=== PATIENT | female | born 1990 | race Caucasian/White ===

== ENCOUNTER 2018-01-19 02:16 | Inpatient (IN) ==
[2018-01-18 23:14] VITALS: BMI 35.6
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
--- OUTSIDE RECORDS SUMMARY | 2018-01-18 23:48 | External Medical Summary | Continuity of Care Document ---
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 Provider: Fabiano BACK, , third 8 [address] [id number] weeks Mary Beth Millard, 1522, gestation of Center [address] [place] [address], Tahir Santamaria [place], 120, [place] [id number], Zach [facility] 120, [place] Zach ABDUL, tel: [phone] [place], [phone] , [place]. [id number]. tel: tel:[phone] Roxie Serrano Lower abdominal October- Lee Referring In Womens pain, 1-201 Chela. Provider: Fabiano BACK, unspecifiedEncoun [address] for suprvsn Mary Beth Millard, 1522, of normal Center [address] [place] [address], , third Tahir Santamaria, weeks 120, [place] [id number], gestation of Zach [facility] 120, [place] Zach ABDUL, tel:[phone] [place], , [place]. [id number]. tel: tel:[phone] Associates Zach Encounter for May-2 Lola Referring In Womens suprvsn of normal 4-201 María. Provider: Fabiano BACK, , third 8 [address] [email or web address] weeks Mary Beth Millard, 1522, gestation of Center [address] [place] [address], Dr [facility], 120, [place] [id number], Zach, [facility] 120, [place] Zach ABDUL, tel:[phone] [place], , [place]. [id number]. tel: tel:[phone] Associates [facility] Placenta previa May-2 Lee Referring In Womens Ultrasound specified as w/o 4-201 Chela. Provider: Fabiano BACK, hemorrhage, third 8 [address] [email or web address] weeks Mray Beth Millard, 1522, gestation of [address], [address] [facility], 120, [place] [id number], [facility], [place] Zach ABDUL, tel:+ [phone] [place], , [place]. [id number]. tel: tel:[phone] Associates [facility] Placenta previa Apr-2 Lee Referring In Womens specified as w/o 4-201 Chela. Provider: lidia Last, second 8 [address] trimesterEncounte Mary Beth Millard, 1522, r for suprvsn of [address], normal , Dr [facility] Mary Beth ABDUL, second 120, [place] [id number], [email or web address] weeks Zach, [facility] 120, [place] gestation of CHANTELL Zach, tel:[phone] [place], , [place]. [id number]. tel: tel:[phone] Associates [facility] Placenta previa Apr-0 Lee Referring In Womens specified as w/o 2-201 Chela. Provider: lidia Last, second 8 [address] [email or web address] weeks Mary Beth Millard, 1522, gestation of [address], Dr [facility], 120, Center [id number], Zach, [facility] 120, [place] Zach ABDUL, tel:[phone] [place], , [place]. [id number]. tel: tel:[phone] Roxie Serrano Placenta previa Feb-2 Lee Referring In Womens specified as w/o 8-201 Chela. Provider: orsa Lastor, second 8 700 [address] [email or web address] weeks Medical Shan Millard, 1522, gestation of Center [address] [place] [address], Dr [facility], 120, [place] [id number], [facility], [place] Zach ABDUL, tel:[phone] [place], , [place]. [id number]. tel: tel:[phone] Roxie Serrano Encounter For Feb-2 Lee Referring In Womens Ultrasound 8-201 Chela. Provider: Fabiano BACK, Screening For 8 [address] [id number] Medical Torrez [place], 1522, weeks gestation Center [address] [place] [address], [address] Dr [facility], 120, [place] [id number], [facility], [place] Zach ABDUL, tel:[phone] [place], , [place]. [id number]. tel: tel:[phone] Roxie Serrano Oth Feb-0 Lee Referring In Womens related 6-201 Chela. Provider: Fabiano BACK, conditions, 8 700 [address]ilda PO Box second Medical Shan Millard, 1522, [email or web address] weeks Center [address] [place] [address], gestation of Dr [facility] Mary Beth ABDUL, 120, Center [id number], [facility], [place] Zach ABDUL, tel:[phone] [place], , [place]. [id number]. tel: tel:[phone] Roxie Serrano Encounter for Otis-2 Lee Referring In Womens suprvsn of normal 3-201 Chela. Provider: Fabiano BACK, , first 8 [address] [email or web address] weeks Medical Shan Millard, 1522, gestation of Center [address] [place] [address], Dr [facility], 120, Center [id number], Zach [facility] 120, [place] Zach ABDUL, tel:[phone] [place], , [place]. [id number]. tel: tel:[phone] Associates Zach Encounter for Dec-0 Lee Referring In Womens suprvsn of normal 5-201 Chela. Provider: Health PA, , first 7 700 [address]ilda PO Box trimesterLess Medical Torrez J, 1522, than 8 weeks Center [facility] Tiera, gestation of , [facility], 120, Center [id number], Zach, [facility] 120, [place] AZZach, tel:[phone] [place], , [place]. [id number]. tel: tel:[phone] Associates Zach Oth Nov-2 Torrez In Womens related 7-201 Nilda. Health PA, conditions, 7 700 PO Box unspecified Medical 1522, trimester Center Dr Tiera, [facility], 120, [id number], Serrano, CHANTELL, tel:[phone] , [place]. tel: [phone] Roxie Serrano Oth Nov-2 Torrez Referring In Womens related 7-201 Nilda. Provider: Health PA, conditions, 7 700 [address] PO Box unspecified Medical Torrez J, 1522, trimester Center [facility] Dr Tiera [facility], 120, Center [id number], Zach [facility] 120, [place] Zach ABDUL, tel:[phone] [place], , [place]. [id number]. tel: tel:[phone] Roxie Serrano Otis-2 Torrez Referring In Womens Follow-Up, 5-201 Nilda. Provider: Health PA, Routine 7 700 [address]ilda PO Box Medical Torrez J, 1522, Center [address], [facility], 120, Center [id number], Zach, [facility] 120, [place] Zach ABDUL, tel:[phone] [place], , [place]. [id number]. tel: tel:[phone] Roxie Serrano Oct-0 Lee Referring In Womens 4-201 Chela. Provider: Fabiano BACK, 6 700 Nilda Millard, 1522, Center [address] [place], [facility], 120, Center [id number], Zach [facility] 120, [place] Zach ABDUL, tel:[phone] [place], , [place]. [id number]. tel: tel:[phone] Roxie Serrano Sep-2 Lee Referring In Womens 0-201 Chela. Provider: Fabiano BACK, 6 700 Nilda Clinton Torrez [place], 1522, Center [address], [facility], 120, Center [id number], [facility], Zach ABDUL, tel:[phone] [place], , [place]. [id number]. tel: tel:[phone] Roxie Serrano Encounter for Apr-2 Lee Referring In Womens screening for oth 8-201 Chela. Provider: Fabiano BACK, infec/parastc 6 700 Nilda Lou [facility] Mary Beth [facility], 1522, Center [address], [facility], 120, Center [id number], Zach [facility] 120, [place] Zach ABDUL, tel:[phone] [place], , [place]. [id number]. tel: tel:[phone] Roxie Serrano False positive Apr-1 Lee Referring In Womens serology for HIV 2-201 Chela. Provider: Fabiano BACK, 6 700 [address]ilda [place] Torrez [place], 1522, Center [address] [place], [facility], 120, Center [id number], Zach [facility] 120, [place] Zach ABDUL, tel:[phone] [place], , [place]. [id number]. tel: tel:[phone] Roxie Serrano Apr-0 Lee Referring In Womens 1-201 Chela. Provider: Fabiano BACK, 6 700 Nilda Carmine Clinton Torrez [place], 1522, Center [address], [facility] Medical [place], 120, Center [id number], Serrano, [facility] 120, [place] Zach ABDUL, tel:[phone] [place], , [place]. [id number]. tel: tel:[phone] Associates [facility] Pelvic and Mar-0 Torrez Referring In Womens perineal pain 9-201 Nilda. Provider: Fabiano BACK, 6 700 [address]ilda PO Box Medical Shan Millard, 1522, Center [facility] Dr Tiera, [facility] [place], 120, Center [id number], Serrano, Tahir 120, [place], tel:[phone] [place], , [place]. [id number]. tel: tel:[phone] Associates [facility] Pelvic and Mar-0 Torrez Referring In Womens perineal pain 7-201 Nilda. Provider: Fabiano BACK, 6 700 [address]ilda PO Box Medical Shan Millard, 1522, Center [facility] Dr [place]iera, [facility] [place], 120, Center [id number], Zach, [facility] 120, [place] Zach ABDUL, tel:[phone] [place], , [place]. [id number]. tel: tel:[phone] Associates [facility] Irregular Oct- Torrez Referring In Womens MensesFemale 4-201 Nilda. Provider: Health WONG, infertility 5 700 [address]ilda PO Box associated with Medical Shan Milalrd, 1522, anovulationEncoun Center [facility] [place] for , [facility] CHANTELL, test, result 120, Center [id number], negative Serrano, [facility] 120, [place] Zach ABDUL, tel:[phone] [place], , [place]. [id number]. tel: tel:[phone] Associates Zach Sep-1 Torrez Referring In Womens 6-201 Nilda. Provider: Health WONG, 4 700 [address]ilda PO Box Medical Shan Millard, 1522, Center [facility] Dr [place]iera, [facility] [place], 120, [place] [id number], Zach, [facility] 120, [place] Zach ABDUL, tel:[phone] [place] [phone] , . [id number]. tel: tel: [phone] Family History Family Member Diagnosis Age At [...] Record Payers Payer name Insurance type Covered green party ID Authorization(s) [employer] [place] [id number] [employer] [facility] [id number] [employer] [place] [employer] [place] [id number] [employer] [place] [employer] [place] [id number] [employer] [facility] [id number] [employer] [facility] [id number] Social History Type Description Quantity Date Captured Alcohol Use Details No Caffeine Use Details Unknown Tobacco Use Status Unknown Smoking Status Never smoker Vital Signs Date / Height Weight BMI Pulse Blood Temperature Respiratory Body Head BMI Time: Rate Pressure Rate Surface Circumference percentile Area 206.20 38.9 / lbs 6 mm[Hg] 3:47 kg/m PM eter (2) Chief Complaint And Reason For Visit Unknown Chief Complaint And Reason For Visit Reason For Referral Reason For Referral Unknown Plan Of Care Date Type Action Status Goal Lifestyle education regarding completed diet Goal Lifestyle education regarding completed diet Appointment Liberty Roman BOOKED Future Order: Radiology Order Ultrasound OB Follow-up ([id number]) Ordered Future Order: Radiology Order Complete OB Ultrasound > 14 Weeks Ordered ([id number]) Date Type Problem Goal Intervention Status Start Date Unknown. History Of Present Illness Encounter Date Complaint History Of Present Illness This patient has no known history of present illness Functional Status Encounter Date Functional Assessment Cognitive Assessment Unknown Medications Administered Medication Instructions Dosage Effective Dates (start - stop) Status Comments Drug Treatment Unknown Instructions Date Instruction Additional Information gestational glucose lab screening seat belt use [...]
--- OUTSIDE RECORDS SUMMARY | 2018-01-18 23:48 | External Medical Summary | Continuity of Care Document ---
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 Provider: Fabiano BACK, , third 8 [address] [email or web address] weeks Mary Beth Millard, 1522, gestation of [address], Tahir Santamaria [place], 120, [place] [id number], [facility], Zach ABDUL, tel:[phone] [place], [phone] , . [id number]. tel: tel:[phone] Roxie Serrano Encounter For Lee Referring In Womens 6-201 Chela. Provider: Fabiano BACK, Screening For 8 700 Nilda [address] Streptococcus B35 Mary Beth Millard, 1522, weeks gestation Center [address] [place] [address], of Tahir Santamaria [place], 120, [place] [id number], [place] [address], Zach ABDUL, tel:+ [phone] [place], , [place]. [id number]. tel: tel:[phone] Roxie Serrano Encounter for Rivera-1 Lee Referring In Womens suprvsn of normal 3-201 Chela. Provider: Health WONG, , third 8 700 [address]ilda [address] [email or web address] weeks Medical Shan Millard, 1522, gestation of Center [address] [place] [address], , [facility], 120, Center [id number], Zach, [facility] 120, [place] Zach ABDUL, tel:[phone] [place], , [place]. [id number]. tel: tel:[phone] Roxie Serrano Lower abdominal May-3 Lee Referring In Womens pain, 1-201 Chela. Provider: Health WONG, unspecifiedEncoun [address] for suprvsn Medical Torrez [place], 1522, of normal Center [address] [place] [address], , third Tahir Santamaria, [id number] weeks 120, Louann [id number], [facility], [place] CHANTELL Zach, tel:+ [phone] [place], , [place]. [id number]. tel: tel:[phone] Roxie Serrano Encounter for May-2 Lola Referring In Womens suprvsn of normal 4-201 María. Provider: Fabiano BACK, , third 8 700 Nilda [address] [email or web address] weeks Medical Shan Millard, 1522, gestation of Center [address] [place] [address], , [facility] [place], 120, [place] [id number], Zach, [facility] 120, [place] Zach ABDUL, tel:[phone] [place], , [place]. [id number]. tel: tel:[phone] Roxie Serrano Placenta previa May-2 Lee Referring In Womens Ultrasound specified as w/o 4-201 Chela. Provider: Fabiano BACK, hemorrhage, third 8 700 Nilda [address] [email or web address] weeks Medical Shan Millard, 1522, gestation of [address], , [facility] [place], 120, Center [id number], Zach, [facility] 120, [place] Zach ABDUL, tel:[phone] [place], , [place]. [id number]. tel: tel:[phone] Roxie Serrano Placenta previa Apr-2 Lee Referring In Womens specified as w/o 4-201 Chela. Provider: lidia Last, second 8 700 Nilda PO Box trimesterEncounte Medical [place], 1522, r for suprvsn of [address], normal , Dr [facility] CHANTELL, second 120, Louann [id number], [id number] weeks Serrano, [facility] 120, [place] gestation of Zach ABDUL, tel:+ [phone] [place], , [place]. [id number]. tel: tel:[phone] Roxie Serrano Placenta previa Apr-0 Lee Referring In Womens specified as w/o 2-201 Chela. Provider: lidia Last, second 8 700 Nilda PO Box [email or web address] weeks Medical [place], 1522, gestation of [address], Dr [facility], 120, Louann [id number], [facility], [place] Zach ABDUL, tel:[phone] [place], , [place]. [id number]. tel: tel:[phone] Roxie Serrano Placenta previa Feb-2 Lee Referring In Womens specified as w/o 8-201 Chela. Provider: lidia Last, second 8 700 Nilda PO Box [id number] weeks Medical [place], 1522, gestation of [address], Dr [facility], 120, Louann [id number], Zach, [facility] 120, [place] Zach ABDUL, tel:[phone] [place], , [place]. [id number]. tel: tel:[phone] Roxie Serrano Encounter For Feb-2 Lee Referring In Womens Ultrasound 8-201 Chela. Provider: Fabiano BACK, Screening For 8 700 Nilda PO Box [id number] Medical [place], 1522, weeks gestation Center [address] [place] [address], [address] [facility], 120, Louann [id number], Zach, [facility] 120, [place] Zach ABDUL, tel:[phone] [place], , [place]. [id number]. tel: tel:[phone] Roxie Serrano Oth Feb-0 Lee Referring In Womens related 6-201 Chela. Provider: Health PA, conditions, 8 700 Nilda PO Box second Medical Torrez J, 1522, weeks Center [address] [place] [address], gestation of Dr [facility] Mary Beth ABDUL, 120, Center [id number], Zach, [facility] 120, [place] Zach ABDUL, tel:[phone] [place], , [place]. [id number]. tel: tel:[phone] Roxie Serrano Encounter for Otis-2 Lee Referring In Womens suprvsn of normal 3-201 Chela. Provider: Health PA, , first 8 700 Nilda [address] Box [email or web address] weeks Medical [place], 1522, gestation of [address], Dr [facility], 120, Louann [id number], Zach [facility] 120, [place] Zach ABDUL, tel:[phone] [place], , [place]. [id number]. tel: tel:[phone] Roxie Serrano Encounter for Dec-0 Lee Referring In Womens suprvsn of normal 5-201 Chela. Provider: Health PA, , first 7 700 Nilda PO Box trimesterLess Medical Torrez J, 1522, than 8 weeks [address] [place] [address], gestation of Dr [facility] Mary Beth ABDUL, 120, Center [id number], Zach, [facility] 120, [place] Zach ABDUL, tel:[phone] [place], , [place]. [id number]. tel: tel:[phone] Roxie Serrano Oth Nov-2 Torrez In Womens related 7-201 Nilda. Health PA, conditions, 7 700 PO Box unspecified Medical 1522, trimester Center Dr Tiera [facility] [place], 120, [id number], [place], [place], tel:[phone] , [place]. tel: [phone] Roxie Serrano Oth Nov-2 Torrez Referring In Womens related 7-201 Nilda. Provider: Fabiano BACK, conditions, 7 700 Nilda Lou unspecified Mary Beth Millard, 1522, trimester Center [address], [facility] [place], 120, [place] [id number], [place], [facility] 120, [place] Zach ABDUL, tel:[phone] [place], , [place]. [id number]. tel: tel:[phone] Roxie Serrano Otis-2 Torrez Referring In Womens Follow-Up, 5-201 Nilda. Provider: Fabiano BACK, Routine 7 700 Nilda Tor[place], 1522, Center [address], [facility], 120, Louann [id number], [facility] 120, Zach ABDUL, tel:[phone] [place], , [place]. [id number]. tel: tel:[phone] Roxie Serrano Oct-0 Lee Referring In Womens 4-201 Chela. Provider: Fabiano BACK, 6 700 Nilda Torrez [place], 1522, Center [address], [facility], 120, Center [id number], Zach, [facility] 120, Zach ABDUL, tel:[phone] [place], , [place]. [id number]. tel: tel:[phone] Roxie Serrano Sep-2 Lee Referring In Womens 0-201 Chela. Provider: Fabiano BACK, 6 700 Nilda Tor[place], 1522, Center [address], [facility], 120, Center [id number], Zach, [facility] 120, [place] Zach ABDUL, tel:[phone] [place], , [place]. [id number]. tel: tel:[phone] Roxie Serrano Encounter for Apr-2 Lee Referring In Womens screening for oth 8-201 Chela. Provider: Fabiano BACK, infec/parastc 6 700 Nilda Torrez J, 1522, Center [address] Tiera, [facility] [place], 120, Center [id number], Zach, [facility] 120, [place] Zach ABDUL, tel:[phone] [place], , [place]. [id number]. tel: tel:[phone] Associates Zach False positive Apr-1 Lee Referring In Womens serology for HIV 2-201 Chela. Provider: Fabiano BACK, 6 700 Nilda Torrez J, 1522, Center [address] T[address], [facility] [place], 120, Center [id number], Zach, [facility] 120, [place] Zach ABDUL, tel:[phone] [place], , [place]. [id number]. tel: tel:[phone] Associates Zach Apr-0 Lee Referring In Womens 1-201 Chela. Provider: Fabiano BACK, 6 700 Nilda Torrez J, 1522, Center [address] Tiera, [facility] [place], 120, Center [id number], Zach [facility] 120, [place] Zach ABDUL, tel:[phone] [place], , [place]. [id number]. tel: tel:[phone] Associates Zach Pelvic and Mar-0 Torrez Referring In Womens perineal pain 9-201 Nilda. Provider: Fabiano BACK, 6 700 Nilda Torrez J, 1522, Center [address] Tiera, [facility] [place], 120, Center [id number], Zach [facility] 120, [place] Zach ABDUL, tel:[phone] [place], , [place]. [id number]. tel: tel:[phone] Associates Zach Pelvic and Mar-0 Torrez Referring In Womens perineal pain 7-201 Nilda. Provider: Fabiano BACK, 6 700 Nilda Torrez J, 1522, Center [address], [facility] [place], 120, Center [id number], Zach, [facility] 120, [place] Zach ABDUL, tel:[phone] [place], , . [id number]. tel: tel:[phone] Associates Zach Barrios Shan Referring In Womens MensesFemale 4-201 Nilda. Provider: [facility], infertility 5 700 Nilda PO Box associated with Medical Shan Millard, 1522, anovulationEncoun Center [address] for , [facility] CHANTELL, test, result 120, Center [id number], negative Serrano, [facility] 120, Zach ABDUL, tel:[phone] [place], , . [id number]. tel: tel:[phone] Roxie Serrano Shan Referring In Womens 6-201 Nilda. Provider: [facility], 4 700 Nilda PO Box Medical Shan Millard, 1522, Center [facility] Dr Tiera, [facility], 120, Louann [id number], Zach, [facility] 120, [place] Zach ABDUL, tel:[phone] [place], , . [id number]. tel: tel:[phone] Family History Family Member Diagnosis Age At [...] Record Payers Payer name Insurance type Covered alliance party ID Authorization(s) [facility] Out Of State [id number] [facility] [id number] [employer] Out Of State [id number] [employer] Out Of [place] [id number] BC[employer] [facility] [id number] [employer] [id number] Social History Type Description Quantity Date Captured Alcohol Use Details No Caffeine Use Details Unknown Tobacco Use Status Unknown Smoking Status Never smoker Vital Signs Date / Height Weight BMI Pulse Blood Temperature Respiratory Body Head BMI Time: Rate Pressure Rate Surface Circumference percentile Area 209.70 39.6 110/69 2018 lbs 2 mm[Hg] 4:15 kg/m PM eter (2) Chief Complaint And Reason For Visit Unknown Chief Complaint And Reason For Visit Reason For Referral Reason For Referral Unknown Plan Of Care Date Type Action Status Goal Lifestyle education regarding completed diet Goal Lifestyle education regarding completed diet Appointment Liberty Roman BOOKED Future Order: Radiology Order Ultrasound OB Follow-up ([id number]) Ordered Future Order: Radiology Order Complete OB Ultrasound > 14 Weeks Ordered ([id number]) Date Type Problem Goal Intervention Status Start [...]
--- OUTSIDE RECORDS SUMMARY | 2018-01-18 23:48 | External Medical Summary | Continuity of Care Document ---
:1990 Author Organization [facility] Address [address] [place], [place] [address] Phone Support Name Relationship Address Phone Kale Roman spouse [address] [phone] [place] [address] Allergies, Adverse Reactions, Alerts Substance Reaction Severity [...] - stop) Clinical Status Follow-Up, Routine - Oth related conditions, unspecified trimester Irregular Menses Female infertility associated with anovulation Encounter for test, result - negative Oth related conditions, unspecified trimester Pelvic and perineal pain Pelvic and perineal pain - Encounter for screening for oth - infec/parastc diseases Encounter for suprvsn of normal - , first trimester Less than 8 weeks gestation of - 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 Provider: Health PA, , first 7 700 Nilda PO Box trimesterLess irineo Millard, 1522, 8 weeks gestation Center [address] [place], of , [facility] [place], 120, Center [id number], Zach, [facility] 120, [place] Zach ABDUL, tel:[phone] [place], , [place]. [id number]. tel: tel:[phone] Roxie Serrano Oth Apr-2 Torrez In Womens related conditions, Nilda. Health PA, unspecified 7 700 PO Box trimester Medical 1522, Center Dr Tiera, [facility] [place], 120, [id number], [place], [place], tel:[phone] , [place]. tel: [phone] Office/outpa Associates Zach Early ob Oth Torrez Referring tient In Womens (chief related conditions, Nilda. Provider: visit,est, Health PA, complaint) unspecified 7 700 Nilda low PO Box trimester Medical Shan J, 1522, Center [address], [facility], 120, [place] [id number], [facility], [place] Zach ABDUL, tel:[phone] [place], , [place]. [id number]. tel: tel:[phone] Roxie Serrano Otis-2 Shan Referring In Womens Follow-Up, Routine - Nilda. Provider: Fabiano BACK, 7 700 Nilda PO Box Medical Torrez J, 1522, Center [address], [facility], 120, [place] [id number], [facility], [place] Zach ABDUL, tel:[phone] [place], , [place]. [id number]. tel: tel:[phone] Roxie Serrano Oct-0 Lee Referring In Womens 4-201 Chela. Provider: Health WONG, 6 700 Nilda PO Box Medical Tor[place] J, 1522, Center [address], [facility] [place], 120, Center [id number], Zach, [facility] 120, [place] Zach ABDUL, tel:[phone] [place], , [place]. [id number]. tel: tel:[phone] Roxie Serrano Sep-2 Lee Referring In Womens 0-201 Chela. Provider: Fabiano BACK, 6 700 Nilda Torrez [place], 1522, Center [address], [facility] [place], 120, Center [id number], Zach, [facility] 120, [place] Zach ABDUL, tel:[phone] [place], , [place]. [id number]. tel: tel:[phone] Roxie Serrano Encounter for Apr-2 Lee Referring In Womens screening for oth 8-201 Chela. Provider: Fabiano BACK, infec/parastc 6 700 Nilda Lou [facility] Mary Beth Torrez [place], 1522, Center [address]iera, [facility], 120, Center [id number], Zach, [facility] 120, [place] Zach ABDUL, tel:[phone] [place], , [place]. [id number]. tel: tel:[phone] Roxie Serrano False positive Apr-1 Lee Referring In Womens serology for HIV 2-201 Chela. Provider: Fabiano BACK, 6 700 Nilda Torrez [place], 1522, Center [address], [facility], 120, Center [id number], Zach, [facility] 120, [place] Zach ABDUL, tel:[phone] [place], , [place]. [id number]. tel: tel:[phone] Roxie Serrano Apr-0 Lee Referring In Womens 1-201 Chela. Provider: Fabiano BACK, 6 700 Nilda [place] Torrez [place], 1522, Center [address], [facility] [place], 120, [place] [id number], [facility], [place] Zach ABDUL, tel:[phone] [place], , [place]. [id number]. tel: tel:[phone] Roxie Serrano Pelvic and perineal Mar-0 Shan Referring In Womens pain 9-201 Nilda. Provider: Fabiano BACK, 6 700 Nilda Torrez J, 1522, Center [address], [facility] Medical [place], 120, Center [id number], Zach, Tahir 120, [place] Zach ABDUL, tel:[phone] [place], , [place]. [id number]. tel: tel:[phone] Associates Zach Pelvic and perineal Mar-0 Torrez Referring In Womens pain 7-201 Nilda. Provider: Fabiano BACK, 6 700 Nilda PO Box Medical [place] J, 1522, Center [address], [facility] [place], 120, Center [id number], Zach, [facility] 120, [place] Zach ABDUL, tel:[phone] [place], , [place]. [id number]. tel: tel:[phone] Associates Zach Irregular Oct- Shan Referring In Womens MensesFemale 4-201 Nilda. Provider: Fabiano BACK, infertility 5 700 Nilda PO Box associated with Medical Shan J, 1522, anovulationEncounte Center [address] [place] [address], elina for , [facility] CHANTELL, test, result 120, Center [id number], negative Serrano, [facility] 120, [place] Zach ABDUL, tel:[phone] [place], , [place]. [id number]. tel: tel:[phone] Associates Zach Sep-1 Torrez Referring In Womens 6-201 Nilda. Provider: Fabiano BACK, 4 700 Nilda PO Box Medical Tor[place] J, 1522, Center [facility] Dr Tiera, [facility] [place], 120, Center [id number], Zach, [facility] 120, [place] Zach ABDUL, tel:[phone] [place], , [place]. [id number]. tel: tel:[phone] Family History Family Member Diagnosis Age At [...] of Osteoporosis Immunizations Vaccine Date Status Comments Influenza, injectable, completed Source: New Immunization Record quadrivalent, preservative free, 3 yrs or older Tdap completed Source: New Immunization Record Payers Payer name Insurance type Covered green party ID Authorization(s) [facility] [id number] [facility] [id number] [facility] [id number] Social History Type Description Quantity Date Captured Alcohol Use Details No Caffeine Use Details No Tobacco Use Status Never smoked tobacco Smoking Status Never smoker Vital Signs Date / Height Weight BMI Pulse Blood Temperature Respiratory Body Head BMI Time: Rate Pressure Rate Surface Circumference percentile Area 202.10 75 118/69 lbs /min mm[Hg] 2:08 PM Chief Complaint And Reason For Visit Unknown Chief Complaint And Reason For Visit Reason For Referral Reason For Referral Unknown Plan Of Care Date Type Action Status Goal Lifestyle education regarding diet completed Goal Lifestyle education regarding diet completed Date Type Problem Goal Intervention Status Start Date Unknown. History Of Present Illness Encounter Date Complaint History Of Present Illness Early ob 26 yr hf gr 1 p 1 presents today as an early ob to establish PG and mild cramping.HPI: LMP 04/17/17, 5.3GA, EDC 01/22/18. Reports some mild cramping last evening and today. No bleeding. Positive nausea. Here to discuss early PG. Planning to travel [place] to for [place] time. Area they travel to is at 6500 [address] elevation or higher. Traveled last PG also. Functional Status Encounter Date Functional Assessment Cognitive Assessment Unknown Medications Administered Medication Instructions Dosage Effective Dates (start - stop) Status Comments Drug Treatment Unknown Instructions Date Instruction Additional Information Lifestyle education regarding diet Related to Body [...]
--- OUTSIDE RECORDS SUMMARY | 2018-01-18 23:48 | External Medical Summary | Continuity of Care Document ---
:1990 Author Organization [facility] Address [address] [place], [place] [address] Phone Support Name Relationship Address Phone Kale Roman spouse [address] [phone] [place] [address] Allergies, Adverse Reactions, Alerts Substance Reaction Severity [...] - stop) Clinical Status Follow-Up, Routine - Lower abdominal pain, unspecified - Encounter for suprvsn of normal - , third trimester 31 weeks gestation of - Irregular Menses Female [...] Procedure Date OB Visit No Charge Cult, bactr, david colonycnt, urine Results Test Name Date and Time Measure Units Reference Range Abnormal Flag Comments Panel Description: Bacteria identified in Urine by Culture Urine Culture, 13:11:00 Final report Routine Result 1 13:11:00 Comment Mixed urogenital floraGreater than 100,000 colony forming units per mL Advance Directives Directive Yes / No Effective Date File Name Unknown Encounters Encounter Practice Location Reason(s) Diagnoses Date Provider Care Team Description For Visit Members Rxoie Serrano Encounter for Lee Referring In Womens suprvsn of normal 3-201 Chela. Provider: Fabiano BACK, , third 8 700 Nilda Lou [id number] weeks Mary Beth [place], 1522, gestation of Center [address] [place] [address] Dr [facility] [place], 120, [place] [id number], Zahc [facility] 120, [place] Zach ABDUL, [phone] [place], [id number] , . [id number]. tel: tel:[phone] Roxie Serrano Lower abdominal October- Lee Referring In Womens pain, 1-201 Chela. Provider: Fabiano BACK, unspecifiedEncoun [address] for suprvsn Mary Beth [place], 1522, of normal Center [address] [place] [address], , third Tahir Santamaria, [id number] weeks 120, Center [id number], gestation of Serrano, [facility] 120, [place] Zach ABDUL, tel:[phone] [place], , [place]. [id number]. tel: tel:[phone] Associates Zach Encounter for May-2 Lola Referring In Womens suprvsn of normal 4-201 María. Provider: Fabiano BACK, , third 8 700 Nilda CASTILLO Box [id number] weeks Medical [place], 1522, gestation of Center [address] [place] [address], Tahir Santamaria [place], 120, Center [id number], Serrano, [facility] 120, [place] Zach ABDUL, tel:[phone] [place], , [place]. [id number]. tel: tel:[phone] Associates Zach Placenta previa May-2 Lee Referring In Womens Ultrasound specified as w/o 4-201 Chela. Provider: Fabiano BACK, hemorrhage, third 8 700 Nilda Lou [id number] weeks Medical [place], 1522, gestation of Center [address] [place] [address], Tahir Santamaria [place], 120, [place] [id number], Serrano, [facility] 120, [place] Zach ABDUL, tel:[phone] [place], , [place]. [id number]. tel: tel:[phone] Associates Zach Placenta previa Apr-2 Lee Referring In Womens specified as w/o 4-201 Chela. Provider: lidia Last, second 8 700 Nilda Lou trimesterEncounte Medical [place], 1522, r for suprvsn of Center 700 [address], normal , Tahir Santamaria, second 120, [place] [id number], [id number] weeks Serrano, [facility] 120, [place] gestation of Zach ABDUL, tel:[phone] [place], , [place]. [id number]. tel: tel:[phone] Associates Zach Placenta previa Apr-0 Lee Referring In Womens specified as w/o 2-201 Chela. Provider: lidia Last, second 8 700 Nilda PO Box [id number] weeks Medical [place], 1522, gestation of Center [address] [place] [address], Tahir Santamaria [place], 120, Center [id number], Zach [facility] 120, [place] Zach ABDUL, tel:[phone] [place], , [place]. [id number]. tel: tel:[phone] Roxie Serrano Placenta previa Feb-2 Lee Referring In Womens specified as w/o 8-201 Chela. Provider: lidia Last, second 8 700 Nilda PO Box [id number] weeks Medical [place], 1522, gestation of Center [address] [place] [address], Tahir Santamaria [place], 120, Center [id number], Zach [facility] 120, [place] Zach ABDUL, tel:[phone] [place], , [place]. [id number]. tel: tel:[phone] Serrano Encounter For Feb-2 Lee Referring In Womens Ultrasound 8-201 Chela. Provider: Fabiano BACK, Screening For 8 700 Nilda PO Box [id number] Medical [place], 1522, weeks gestation Center [address] [place] [address], of Tahir Santamaria [place], 120, Center [id number], Zach [facility] 120, [place] Zach ABDUL, tel:[phone] [place], , [place]. [id number]. tel: tel:[phone] Serrano Oth Feb-0 Lee Referring In Womens related 6-201 Chela. Provider: Fabiano BACK, conditions, 8 700 Nilda PO Box second Medical [place], 1522, [id number] weeks Center 700 [place], gestation of Tahir Santamaria, 120, Center [id number], Zach [facility] 120, [place] Zach ABDUL, tel:[phone] [place], , [place]. [id number]. tel: tel:[phone] Serrano Encounter for Otis-2 Lee Referring In Womens suprvsn of normal 3-201 Chela. Provider: Fabiano BACK, , first 8 700 Nilda PO Box [id number] weeks Medical [place], 1522, gestation of Center [facility] Tiera, , [facility] [place], 120, Center [id number], Zach, [facility] 120, [place] Zach ABDUL, tel:[phone] [place], , [place]. [id number]. tel: tel:[phone] Roxie Serrano Encounter for Dec-0 Lee Referring In Womens suprvsn of normal 5-201 Chela. Provider: Health PA, , first 7 700 Nilda PO Box trimesterLess Medical [place], 1522, than [address] [facility] [place], gestation of , [facility] [place], 120, Center [id number], Zach [facility] 120, [place] Zach ABDUL, tel:[phone] [place], , [place]. [id number]. tel: tel:[phone] Roxie Serrano Oth Nov-2 Torrez In Womens related 7-201 Nilda. Health PA, conditions, 7 700 PO Box unspecified Medical 1522, trimester Center Dr Tiera, [facility] [place], 120, [id number], Serrano, [place], tel:[phone] , [place]. tel: [phone] Roxie Serrano Oth Nov-2 Torrez Referring In Womens related 7-201 Nilda. Provider: Health PA, conditions, 7 700 Nilda PO Box unspecified Medical Shan [place], 1522, trimester Center [facility] Dr T[place], [facility] [place], 120, Center [id number], Zach [facility] 120, [place] Zach ABDUL, tel:[phone] [place], , [place]. [id number]. tel: tel:[phone] Roxie Serrano Otis-2 Torrez Referring In Womens Follow-Up, 5-201 Nilda. Provider: Health WONG, Routine 7 700 Nilda PO Box Medical Shan [place], 1522, Center [address], [facility] [place], 120, Center [id number], Zach, [facility] 120, [place] Zach ABDUL, tel:[phone] [place], , [place]. [id number]. tel: tel:[phone] Roxie Serrano Oct-0 Lee Referring In Womens 4-201 Chela. Provider: Fabiano BACK, 6 700 Nilda Carm[facility] [place], 1522, Center [address] [place], [facility], 120, Center [id number], Zach, [facility] 120, [place] Zach ABDUL, tel:[phone] [place], , [place]. [id number]. tel: tel:[phone] Roxie Serrano Sep-2 Lee Referring In Womens 0-201 Chela. Provider: Fabiano BACK, 6 700 Nilda [facility] [place], 1522, Center [address] [place], [facility], 120, Center [id number], Zach, [facility] 120, Zach ABDUL, tel:[phone] [place], , [place]. [id number]. tel: tel:[phone] Roxie Serrano Encounter for Apr-2 Lee Referring In Womens screening for oth 8-201 Chela. Provider: Fabiano BACK, infec/parastc 6 700 Nilda [facility], 1522, Center [address], [facility], 120, Center [id number], Zach, [facility] 120, [place] Zach ABDUL, tel:[phone] [place], , [place]. [id number]. tel: tel:[phone] Roxie Serrano False positive Apr-1 Lee Referring In Womens serology for HIV 2-201 Chela. Provider: Fabiano BACK, 6 700 Nilda Carmine [facility] [place], 1522, Center [address] [place], [facility], 120, Center [id number], Zach, [facility] 120, [place] Zach ABDUL, tel:[phone] [place], , [place]. [id number]. tel: tel:[phone] Roxie Serrano Apr-0 Lee Referring In Womens 1-201 Chela. Provider: Fabiano BACK, 6 700 Nilda PO Box Medical [place], 1522, Center [address] Dr [place], [facility] Medical [place], 120, Center [id number], Zach, Tahir 120, [place] Zach ABDUL, tel:[phone] [place], , [place]. [id number]. tel: tel:[phone] Associates Zach Pelvic and Mar-0 Torrez Referring In Womens perineal pain 9-201 Nilda. Provider: Fabiano BACK, 6 700 Nilda PO Box Medical [place], 1522, Center [address] Dr [place], [facility] [place], 120, Center [id number], Zach, Tahir 120, [place] Zach ABDUL, tel:[phone] [place], , [place]. [id number]. tel: tel:[phone] Associates Zach Pelvic and Mar-0 Torrez Referring In Womens perineal pain 7-201 Nilda. Provider: Fabiano BACK, 6 700 Nilda PO Box Medical [place], 1522, Center [address] [place], [facility] [place], 120, Center [id number], Zach Tah[place] 120, [place] Zach ABDUL, tel:[phone] [place], , [place]. [id number]. tel: tel:[phone] Associates Zach Irregular Oct- Torrez Referring In Womens MensesFemale 4-201 Nilda. Provider: Health WONG, infertility 5 700 Nilad PO Box associated with Medical [place], 1522, anovulationEncoun Center [address] for , [facility], test, result 120, Center [id number], negative Zach, Tahir 120, [place] Zach ABDUL, tel:[phone] [place], , [place]. [id number]. tel: tel:[phone] Associates Zach Sep-1 Torrez Referring In Womens 6-201 Nilda. Provider: Health WONG, 4 700 Nilda PO Box Medical [place], 1522, Center [address] Dr [place], [address] [id number], [address] Zach ABDUL, tel:[phone] [place], [address] , . [id number]. tel: tel:[phone] Family History Family Member Diagnosis Age At [...] party ID Authorization(s) [employer] [id number] [employer] [facility] [id number] [employer] [place] [id number] [employer] [place] [id number] [facility] [id number] [employer] [facility] [id number] Social History Type Description Quantity Date Captured Alcohol Use Details No Caffeine Use Details Unknown Tobacco Use Status Unknown Smoking Status Never smoker Vital Signs Date / Height Weight BMI Pulse Blood Temperature Respiratory Body Head BMI Time: Rate Pressure Rate Surface Circumference percentile Area 207.70 39.2 lbs 4 mm[Hg] 11:25 kg/m AM eter (2) Chief Complaint And Reason For Visit Unknown Chief Complaint And Reason For Visit Reason For Referral Reason For Referral Unknown Plan Of Care Date Type Action Status Goal Lifestyle education regarding completed diet Goal Lifestyle education regarding completed diet Appointment Liberty Roman BOOKED Future Order: Radiology Order Ultrasound OB Follow-up ([id number]) Ordered Future Order: Radiology Order Complete OB Ultrasound > 14 Weeks Ordered ([id number]) Date Type Problem Goal Intervention Status Start [...]
--- OUTSIDE RECORDS SUMMARY | 2018-01-18 23:49 | External Medical Summary | Continuity of Care Document ---
:1990 Author Organization [facility] Address [address] [place], [place] [address] Phone Support Name Relationship Address Phone Klae Roman spouse [address] [phone] [place] [address] Allergies, Adverse Reactions, Alerts Substance Reaction Severity [...] Mastodynia - Active Active Procedures Procedure Date Unknown Results Test Name Date and Time Measure Units Reference Range Abnormal Flag Comments Unknown Advance Directives Directive Yes / No Effective Date File Name Unknown Encounters Encounter Practice Location Reason(s) Diagnoses Date Provider Care Team Description For Visit Members Roxie Serrano Encounter for Lee Referring In [facility] suprvsn of normal 5-201 Chela. Provider: Health PA, , first 7 700 Nilda PO Box trimesterLess irineo [place], 1522, 8 weeks gestation Center 700 [place], of , [facility] Medical [place], 120, [place] [id number], Zach [facility] 120, [place] Zach ABDUL, tel:[phone] [place], , [place]. [id number]. tel: tel:[phone] Roxie Serrano Oth Nov-2 Torrez In Womens related conditions, 7-201 Nilda. Health WONG, unspecified 7 700 PO Box trimester Medical 1522, Center Dr T[place], [facility] [place], 120, [id number], Serrano, [facility], tel:[phone] , [place]. tel: [phone] Roxie Serrano Oth Nov-2 Torrez Referring In Womens related conditions, Nilda. Provider: Fabiano BACK, unspecified 7 700 Nilda PO Box trimester Medical [place], 1522, Center [address], [facility], 120, Center [id number], [facility] 120, Zach ABDUL, tel:[phone] [place], , [place]. [id number]. tel: tel:[phone] Roxie Serrano Otis-2 Torrez Referring In Womens Follow-Up, Routine 5-201 Nilda. Provider: Fabiano BACK, 7 700 Nilda PO Box Medical [place], 1522, Center [address], [facility], 120, Center [id number], [facility] 120, Zach ABDUL, tel:[phone] [place], , [place]. [id number]. tel: tel:[phone] Roxie Serrano Oct-0 Lee Referring In Womens 4-201 Chela. Provider: Fabiano BACK, 6 700 Nilda PO Box Medical [place], 1522, Center [address], [facility], 120, Center [id number], [facility] 120, [place] Zach ABDUL, tel:[phone] [place], , [place]. [id number]. tel: tel:[phone] Roxie Serrano Sep-2 Lee Referring In Womens 0-201 Chela. Provider: Fabiano BACK, 6 700 Nilda [place]rez J, 1522, Center [address] [place], [facility] [place], 120, Center [id number], Zach, [facility] 120, [place] Zach ABDUL, tel:[phone] [place], , [place]. [id number]. tel: tel:[phone] Associates Zach Encounter for Apr-2 Lee Referring In Womens screening for oth 8- Chela. Provider: Fabiano BACK, infec/parastc 6 700 Nilda Lou [place] Torrez J, 1522, Center [address] [place], [facility] [place], 120, Center [id number], Zach, [facility] 120, [place] Zach ABDUL, tel:[phone] [place], , [place]. [id number]. tel: tel:[phone] Associates Zach False positive Apr-1 Lee Referring In Womens serology for HIV 2- Chela. Provider: Fabiano BACK, 6 700 Nilda Torrez J, 1522, Center [address] Dr [place], [facility], 120, Center [id number], Zach, [facility] 120, [place] Zach ABDUL, tel:[phone] [place], , [place]. [id number]. tel: tel:[phone] Roxie Serrano Apr-0 Lee Referring In Womens 1-201 Chela. Provider: Fabiano BACK, 6 700 Nilda Torrez [place], 1522, Center [address] [place], [facility] [place], 120, Center [id number], Zach [facility] 120, [place] Zach ABDUL, tel:[phone] [place], , [place]. [id number]. tel: tel:[phone] Associates Zach Pelvic and perineal Mar-0 Shan Referring In Womens pain 9-201 Nilda. Provider: Fabiano BACK, 6 700 Nilda Torrez [place], 1522, Center [address] [place], [facility] [place], 120, Center [id number], Zach, [facility] 120, [place] Zach ABDUL, tel:[phone] [place], , . [id number]. tel: tel:[phone] Associates Zach Pelvic and perineal Mar-0 Shan Referring In Womens pain 7-201 Nilda. Provider: Health WONG, 6 700 Nilda PO Box Medical Shan J, 1522, Center [address] Dr [place], [facility], 120, Center [id number], Zach, [facility] 120, Zach ABDUL, tel:[phone] [place], , . [id number]. tel: tel:[phone] Associates Zach Irregular Oct- Shan Referring In Womens MensesFemale 4-201 Nilda. Provider: Health WONG, infertility 5 700 Nilda PO Box associated with Medical Shan J, 1522, anovulationEncounte Center 700 [address] for , [facility] CHANTELL, test, result 120, Center , negative Zach, [facility] 120, Zach ABDUL, tel:[phone] [place], , . [id number]. tel: tel:[phone] Roxie Serrano Sep-1 Shan Referring In Womens 6-201 Nilda. Provider: Health WONG, 4 700 Nilda PO Box Medical Shan J, 1522, Center [address] [place], [facility], 120, Center [id number], Zach, [facility] 120, [place] Zach ABDUL, tel:[phone] [place], , . [id number]. tel: tel:[phone] Family History Family Member Diagnosis Age At [...] Insurance type Covered constitution party ID Authorization(s) [facility] [place] [id number] [facility] [place] [id number] [facility] [place] [id number] Social History Type Description Quantity Date Captured Unknown Vital Signs Date / Height Weight BMI Pulse Blood Temperature Respiratory Body Head BMI Time: Rate Pressure Rate Surface Circumference percentile Area Unknown Chief Complaint And Reason For Visit Unknown [...]
--- OUTSIDE RECORDS SUMMARY | 2018-01-18 23:49 | External Medical Summary | Continuity of Care Document ---
:1990 Author Organization [facility] Address [address] [place], [place] [address] Phone Support Name Relationship Address Phone Kale Roman spouse [address] [phone] [place] [address] Allergies, Adverse Reactions, Alerts Substance Reaction Severity [...] Less than 8 weeks gestation of - Irregular Menses Female infertility associated with anovulation Encounter for test, result - negative Oth related conditions, unspecified trimester Oth related conditions, unspecified trimester Pelvic and perineal pain Pelvic and perineal pain - Encounter for screening for oth - infec/parastc diseases 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 Provider: Health WONG, , first 7 700 Nilda PO Box trimesterLess than [place] Beth [place], 1522, 8 weeks gestation Center 700 [place], of , [facility] [place], 120, Center [id number], Zach, [facility] 120, [place] Zach ABDUL, tel:[phone] [place], , [place]. [id number]. tel: tel:[phone] Roxie Serrano Oth Nov-2 Torrez In Womens related conditions, Nilda. Health PA, unspecified 7 700 PO Box trimester Medical 1522, [place] Dr [place], [facility] [place], 120, [id number], [place], [place], tel:[phone] , [place]. tel: [phone] Roxie Serrano Oth Nov-2 Torrez Referring In Womens related conditions, Nilda. Provider: Health WONG, unspecified 7 700 Nilda PO Box trimester Medical [place] J, 1522, Center [facility] Dr Tiera, [facility], 120, Center [id number], [facility] 120, [place] Zach ABDUL, tel:[phone] [place], , [place]. [id number]. tel: tel:[phone] Roxie Serrano Otis-2 Torrez Referring In Womens Follow-Up, Routine -201 Nilda. Provider: Fabiano BACK, 7 700 Nilda PO Box Medical [place], 1522, Center [address], [facility], 120, Center [id number], [facility] 120, [place] Zach ABDUL, tel:[phone] [place], , [place]. [id number]. tel: tel:[phone] Roxie Serrano Oct-0 Lee Referring In Womens 4-201 Chela. Provider: Health WONG, 6 700 Nilda PO Box Medical [place], 1522, [facility] [address] T[place], [facility] [place], 120, Center [id number], Zach, [facility] 120, [place] Zach ABDUL, tel:[phone] [place], , [place]. [id number]. tel: tel:[phone] Serrano Sep-2 Lee Referring In Womens 0-201 Chela. Provider: Fabiano BACK, 6 700 Nilda Torrez [place], 1522, Center [address] [place], [facility], 120, Center [id number], Zach, [facility] 120, [place] Zach ABDUL, tel:[phone] [place], , [place]. [id number]. tel: tel:[phone] Serrano Encounter for Apr-2 Lee Referring In Womens screening for oth 8-201 Chela. Provider: Fabiano BACK, infec/parastc 6 700 Nilda Torrez [place], 1522, Center [address] [place], [facility], 120, Center [id number], [facility] 120, [place] Zach ABDUL, tel:[phone] [place], , [place]. [id number]. tel: tel:[phone] Roxie Serrano False positive Apr-1 Lee Referring In Womens serology for HIV 2-201 Chela. Provider: Fabiano BACK, 6 700 Nilda Torrez [place], 1522, Center [address] [place], [facility], 120, Center [id number], [facility] 120, [place] Zach ABDUL, tel:[phone] [place], , [place]. [id number]. tel: tel:[phone] Serrano Apr-0 Lee Referring In Womens 1-201 Chela. Provider: Fabiano BACK, 6 700 Nilda Torrez [place], 1522, Center [address], [facility] [place], 120, [place] [id number], [facility] 120, [place] Zach ABDUL, tel:[phone] [place], , [place]. [id number]. tel: tel:[phone] Roixe Serrano Pelvic and perineal Mar-0 Shan Referring In Womens pain 9-201 Nilda. Provider: Fabiano BACK, 6 700 Nilda Torrez [place], 1522, Center [address], [facility] [place], 120, Center [id number], Zach, [facility] 120, [place] Zach ABDUL, tel:[phone] [place], , [place]. [id number]. tel: tel:[phone] Associates Zach Pelvic and perineal Mar-0 Shan Referring In Womens pain 7-201 Nilda. Provider: [facility], 6 700 Nilda PO Box Medical Shan [place], 1522, Center [address] [place], [facility] [place], 120, Center [id number], Zach, [facility] 120, [place] Zach ABDUL, tel:[phone] [place], , [place]. [id number]. tel: tel:[phone] Associates Zach Irregular Oct-1 Shan Referring In Womens MensesFemale 4-201 Nilda. Provider: [facility], infertility 5 700 Nilda PO Box associated with [place], 1522, anovulationEncounte Center 700 [address] for , [facility] CHANTELL, test, result 120, Center [id number], negative Serrano, [facility] 120, Zach ABDUL, tel:[phone] [place], , [place]. [id number]. tel: tel:[phone] Associates Zach Sep-1 Shan Referring In Womens 6-201 Nilda. Provider: [facility], 4 700 Nilda PO Box Medical Shan [place], 1522, Center [address] Dr [place], [facility], 120, Center [id number], Zach, [facility] 120, [place] Zach ABDUL, tel:[phone] [place], , [place]. [id number]. tel: tel:[phone] Family History Family Member Diagnosis Age At [...] Record Payers Payer name Insurance type Covered libertarian ID Authorization(s) [facility] [place] [id number] [facility] [place] [id number] [facility] [place] [id number] Social History Type Description Quantity Date Captured Alcohol Use Details No Caffeine Use Details Unknown Tobacco Use Status Unknown Smoking Status Never smoker Vital Signs Date / Height Weight BMI Pulse Blood Temperature Respiratory Body Head BMI Time: Rate Pressure Rate Surface Circumference percentile Area 198.80 35.2 109/ lbs 1 mm[Hg] 10:28 kg/m AM eter (2) 198.80 70 109/ lbs /min mm[Hg] 1:14 PM Chief Complaint And Reason For Visit [...]
--- OUTSIDE RECORDS SUMMARY | 2018-01-18 23:49 | External Medical Summary | Continuity of Care Document ---
:1990 Author Organization [facility] Address [address] [place], [place] [id number] Phone Support Name Relationship Address Phone Kale Roman spouse [address] [employer] [address] [phone] [place] [address] Allergies, Adverse Reactions, Alerts Substance Reaction Severity [...] - stop) Clinical Status Follow-Up, Routine - Placenta previa specified as w/o - hemor, second trimester 23 weeks gestation of - Irregular Menses Female infertility associated with anovulation Encounter for test, result - negative Oth related conditions, - second trimester 15 weeks gestation of - Oth related conditions, unspecified trimester Oth related conditions, unspecified trimester Placenta previa specified as w/o - hemor, second trimester 18 weeks gestation of - Pelvic and perineal pain Pelvic and perineal pain - Encounter for screening for oth - infec/parastc diseases Encounter for suprvsn of normal - , first trimester 13 weeks gestation of - Encounter for suprvsn of normal - , first trimester Less than 8 weeks gestation of - Encounter For Screening [...] Team Description For Visit Members Roxie Serrano Placenta previa Sep- Lee Referring In Womens specified as w/o 2-201 Chela. Provider: lidia Last, second 8 700 Nilda [address] [email or web address] weeks Medical [place]rez [place], 1522, gestation of [address], Dr [facility], 120, [place] [id number], Zach, [facility] 120, [place] Zach A[place], tel:[phone] [place], , [place]. [id number]. tel: tel:[phone] Roxie Serrano Placenta previa Feb-2 Lee Referring In Womens specified as w/o 8- Chela. Provider: lidia Last, second 8 700 Nilda [address] [email or web address] weeks Medical Torrez J, 1522, gestation of [address], Dr [facility], 120, [place] [id number], Zach, [facility] 120, [place] Zach ABDUL, tel:[phone] [place], , [place]. [id number]. tel: tel:[phone] Roxie Serrano Encounter For Feb-2 Lee Referring In Womens Ultrasound 8- Chela. Provider: Fabiano BACK, Screening For 8 700 Nilda [address] [id number] Medical [place], 1522, weeks gestation [address], of Dr [facility], 120, [place] [id number], Zach, [facility] 120, [place] Zach ABDUL, tel:[phone] [place], , [place]. [id number]. tel: tel:[phone] Roxie Serrano Oth Feb-0 Lee Referring In Womens related 6-201 Chela. Provider: Fabiano BACK, conditions, 8 700 Nilda PO Box second Medical Tor[place] J, 1522, [email or web address] weeks Center [address], gestation of Tahir Santamaria, 120, [place] [id number], Zach, [facility] 120, [place] Zach ABDUL, tel:[phone] [place], , [place]. [id number]. tel: tel:[phone] Roxie Serrano Encounter for Otis-2 Lee Referring In Womens suprvsn of normal 3-201 Chela. Provider: Health PA, , first 8 700 Nilda [address] [email or web address] weeks Medical Torrez J, 1522, gestation of Center [address] [place] [address], , [facility], 120, [place] [id number], Zach, [facility] 120, [place] Zach ABDUL, tel:[phone] [place], , [place]. [id number]. tel: tel:[phone] Roxie Serrano Encounter for Dec-0 Lee Referring In Womens suprvsn of normal 5-201 Chela. Provider: Health PA, , first 7 700 Nilda PO Box trimesterLess Medical Torrez J, 1522, than [address] [place] [address], gestation of Tahir Santamaria, 120, Center [id number], Zach [facility] 120, [place] Zach ABDUL, tel:[phone] [place], , [place]. [id number]. tel: tel:[phone] Roxie Serrano Oth Nov-2 Torrez In Womens related 7-201 Nilda. Health PA, conditions, 7 700 PO Box unspecified Medical 1522, trimester [place] Dr Tiera, [facility] [place], 120, [id number], Zach, [place], tel:[phone] , [place]. tel: [phone] Roxie Serrano Ot Nov-2 Torrez Referring In Womens related 7-201 Nilda. Provider: Health PA, conditions, 7 700 Nilda PO Box unspecified Medical Torrez J, 1522, trimester Center [facility] Dr Tiera [facility] Medical [place], 120, [place] [id number], Zach, [facility] 120, [place] Zach ABDUL, tel:[phone] [place], , [place]. [id number]. tel: tel:[phone] Roxie Serrano Otis-2 Shan Referring In Womens Follow-Up, 5-201 Nilda. Provider: Fabiano BACK, Routine 7 700 Nilda Torrez [place], 1522, Center [address] Dr Tiera, [facility], 120, Center [id number], Zach, [facility] 120, [place] Zach ABDUL, tel:[phone] [place], , [place]. [id number]. tel: tel:[phone] Roxie Serrano Oct-0 Lee Referring In Womens 4-201 Chela. Provider: Fabiano BACK, 6 700 Nilda Torrez [place], 1522, Center [address] Dr Tiera, [facility], 120, [place] [id number], Zach, [facility] 120, Zach ABDUL, tel:[phone] [place], , [place]. [id number]. tel: tel:[phone] Roxie Serrano Sep-2 Lee Referring In Womens 0-201 Chela. Provider: Fabiano BACK, 6 700 Nilda [place], 1522, Center [address] Dr Tiera, [facility], 120, [place] [id number], Zach [facility] 120, [place] Zach ABDUL, tel:[phone] [place], , [place]. [id number]. tel: tel:[phone] Roxie Serrano Encounter for Apr-2 Lee Referring In Womens screening for oth 8-201 Chela. Provider: Fabiano BACK, infec/parastc 6 700 Nilda Torrez [place], 1522, Center [address] Dr Tiera, [facility], 120, [place] [id number], Zach, [facility] 120, [place] Zach ABDUL, tel:[phone] [place], , [place]. [id number]. tel: tel:[phone] Roxie Serrano False positive Apr-1 Lee Referring In Womens serology for HIV 2-201 Chela. Provider: Fabiano BACK, 6 700 Nilda Torrez J, 1522, Center [address] Dr Tiera, [facility] [place], 120, Center [id number], Zach, [facility] 120, [place] Zach ABDUL, tel:[phone] [place], , [place]. [id number]. tel: tel:[phone] Associates Zach Apr-0 Lee Referring In Womens 1-201 Chela. Provider: Fabiano BACK, 6 700 Nilda Lou Medical Torrez J, 1522, Center [address] Dr Tiera, [facility] [place], 120, Center [id number], Zach, [facility] 120, [place], tel:[phone] [place], , [place]. [id number]. tel: tel:[phone] Associates Zach Pelvic and Mar-0 Torrez Referring In Womens perineal pain 9- Nilda. Provider: Fabiano BACK, 6 700 Nilda Lou Medical Tor[place] J, 1522, Center [address] Dr Tiera, [facility] [place], 120, Center [id number], Zach, [facility] 120, [place] Zach ABDUL, tel:[phone] [place], , [place]. [id number]. tel: tel:[phone] Associates Zach Pelvic and Mar-0 Torrez Referring In Womens perineal pain 7- Nilda. Provider: Fabiano BACK, 6 700 Nilda Torrez [place], 1522, Center [address] Dr Tiera, [facility] [place], 120, Center [id number], Zach, [facility] 120, [place] Zach ABDUL, tel:[phone] [place], , [place]. [id number]. tel: tel:[phone] Associates Zach Irregular Torrez Referring In Womens MensesFemale 4-201 Nilda. Provider: Fabiano BACK, infertility 5 700 Nilda Lou associated with Medical [place], 1522, anovulationEncoun Center [facility] [place] for , [facility], test, result 120, Center [id number], [facility], Zach ABDUL, tel:[phone] [place], , . [id number]. tel: tel:[phone] Roxie Serrano Sep- Shan Referring In Womens 6-201 Nilda. Provider: [facility], 700 Nilda [facility] Shan J, 1522, Center [address] Dr Tiera, [facility], 120, [place] [id number], [facility] 120, [place] Zach, tel:[phone] [place], , . [id number]. tel: tel:[phone] Family History Family Member Diagnosis Age At [...] Insurance type Covered constitution party ID Authorization(s) [facility] Out Of State [id number] [facility] [id number] [facility] Out Of State [id number] [facility] [id number] [facility] [id number] Social History Type Description Quantity Date Captured Alcohol Use Details No Caffeine Use Details Unknown Tobacco Use Status Unknown Smoking Status Never smoker Vital Signs Date / Height Weight BMI Pulse Blood Temperature Respiratory Body Head BMI Time: Rate Pressure Rate Surface Circumference percentile Area 205.00 38.7 lbs 3 mm[Hg] 4:01 kg/m PM eter (2) 37.9 7 3:50 kg/m PM eter (2) Chief Complaint And Reason For Visit Unknown Chief Complaint And Reason For Visit Reason For Referral Reason For Referral Unknown Plan Of Care Date Type Action Status Goal Lifestyle education regarding completed diet Goal Lifestyle education regarding completed diet Appointment Liberty Roman BOOKED Future Order: Radiology Order Complete OB Ultrasound > 14 Weeks Ordered ([id number]) Date Type Problem Goal Intervention Status Start Date Unknown. History Of Present Illness Encounter Date Complaint History Of Present Illness This patient has no known history of present illness Functional Status Encounter Date Functional Assessment Cognitive Assessment Unknown Medications Administered Medication Instructions Dosage Effective Dates (start - stop) Status Comments Drug Treatment Unknown Instructions Date Instruction Additional Information seat belt use genetic testing new ob [...]
--- OUTSIDE RECORDS SUMMARY | 2018-01-18 23:49 | External Medical Summary | Continuity of Care Document ---
:1988 Author Organization [facility] Address [address] [place], [place] [id number] Phone Support Name Relationship Address Phone Kale Roman spouse [address] [phone] [place] [address] Allergies, Adverse Reactions, Alerts Substance Reaction Severity [...] - stop) Clinical Status Follow-Up, Routine - Irregular Menses Female infertility associated with [...] Roxie Serrano Encounter for Lee Referring In [facility] suprvsn of normal 5-201 Chela. Provider: Health PA, , first 7 700 Nilda PO Box trimesterLess irineo [place], 1522, 8 weeks gestation Center [address], of , [facility] Medical [place], 120, [place] [id number], Zach [facility] 120, [place] Zach ABDUL, tel:[phone] [place], , [place]. [id number]. tel: tel:[phone] Roxie Serrano Nov-2 Torrez In Womens 9-201 Nilda. Health PA, 7 700 PO Box Medical 1522, Center Dr Tiera, [facility] [place], 120, [id number], [place], [place], tel:[phone] , [place]. tel: [phone] Roxie Serrano Oth Nov-2 Torrez In Womens related conditions, 7- Nilda. Health PA, unspecified 7 700 PO Box trimester Medical 1522, Center Dr Tiera, [facility] [place], 120, [id number], [place], [place], tel:[phone] , [place]. tel: [phone] Roxie Serrano Oth Nov-2 Torrez Referring In Womens related conditions, - Nilda. Provider: Health PA, unspecified 7 700 Nilda PO Box trimester Medical Torrez J, 1522, Center [address], [facility] [place], 120, [place] [id number], [facility] 120, [place] Zach ABDUL, tel:[phone] [place], , [place]. [id number]. tel: tel: [phone] Roxie Serrano Otis-2 Torrez Referring In Womens Follow-Up, Routine 5-201 Nilda. Provider: Health WONG, 7 700 Nilda PO Box Medical Tor[place] J, 1522, Center [address], [facility] Medical [place], 120, [place] [id number], Zach, [facility] 120, [place], Zach, tel:[phone] [place], , [place]. [id number]. tel: tel:[phone] Roxie Serrano Oct-0 Lee Referring In Womens 4-201 Chela. Provider: Health WONG, 6 700 Nilda PO Box Medical [place] J, 1522, Center [address], [facility] Medical [place], 120, Center [id number], Zach [facility] 120, [place] Zach ABDUL, tel:[phone] [place], , [place]. [id number]. tel: tel:[phone] Associates Zach Sep-2 Lee Referring In Womens 0-201 Chela. Provider: Fabiano BACK, 6 700 [facility], 1522, Center [address] Dr [address], [facility], 120, [place] [id number], [facility] 120, Zach ABDUL, tel:[phone] [place], , [place]. [id number]. tel: tel:[phone] Associates Zach Encounter for Apr-2 Lee Referring In Womens screening for oth 8-201 Chela. Provider: Fabiano BACK, [facility], Center [address], [facility], 120, [place] [id number], [facility] 120, [place] Zach ABDUL, tel:[phone] [place], , [place]. [id number]. tel: tel:[phone] Associates Zach False positive Apr-1 Lee Referring In Womens serology for HIV 2-201 Chela. Provider: Fabiano BACK, 6 700 Nilda [facility], 1522, Center [address]iera, [facility], 120, [place] [id number], [facility] 120, [place] Zach ABDUL, tel:[phone] [place], , [place]. [id number]. tel: tel:[phone] Associates Zach Apr-0 Lee Referring In Womens 1-201 Chela. Provider: Fabiano BACK, 6 [facility] [place], 1522, Center [address], [facility], 120, Center [id number], Zach [facility] 120, [place] Zach ABDUL, tel:[phone] [place], , [place]. [id number]. tel: tel: [phone] Associates Zach Pelvic and perineal Mar-0 Torrez Referring In Womens pain 9-201 Nilda. Provider: Fabiano BACK, 6 700 Nilda PO Box Medical Shan [place], 1522, Center [address], [facility] [place], 120, Center [id number], Zach [facility] 120, [place] Zach ABDUL, tel: [phone] [place], , [place]. [id number]. tel: tel:[phone] Associates Zach Pelvic and perineal Mar-0 Torrez Referring In Womens pain 7-201 Nilda. Provider: Fabiano BACK, 6 700 Nilda PO Carmine [place] Shan [place], 1522, Center [address], [facility], 120, Center [id number], Zach [facility] 120, [place] Zach ABDUL, tel:[phone] [place], , [place]. [id number]. tel: tel: [phone] Roxie Serrano Irregular Oct- Shan Referring In Womens MensesFemale 4-201 Nilda. Provider: Health WONG, infertility 5 700 Nilda PO Box associated with Medical Shan [place], 1522, anovulationEncounte Center [facility] elina Mott for , [facility], test, result 120, Center [id number], negative Zach [facility] 120, [place] Zach ABDUL, tel:[phone] [place], , [place]. [id number]. tel: tel: [phone] Roxie Serrano Sep-1 Torrez Referring In Womens 6-201 Nilda. Provider: Health WONG, 4 700 Nilda PO Box Medical Shan [place], 1522, Center [facility] Dr Tiera, [facility], 120, Center [id number], Zach [facility] 120, [place] Zach ABDUL, tel:[phone] [place], , [place]. [id number]. tel: tel: [phone] Family History Family Member Diagnosis Age At [...] Insurance type Covered alliance party ID Authorization(s) [facility] [id number] [facility] [id number] [facility] [id number] Social History Type Description Quantity Date Captured [...]
--- OUTSIDE RECORDS SUMMARY | 2018-01-18 23:49 | External Medical Summary | Continuity of Care Document ---
:1988 Author Organization [facility] Address [address] [place], [place] [address] Phone Support Name Relationship Address Phone Kale Roman spouse [address] [phone] [place] [address] Allergies, Adverse Reactions, Alerts Substance Reaction Severity [...] Status Follow-Up, Routine - Oth related conditions, - second trimester 15 weeks gestation of - Irregular Menses Female [...] Provider Care Team Description For Visit Members Associates Zach Oth Feb-0 Lee Referring In Womens related conditions, 6-201 Chela. Provider: Health WONG, second [email or web address] 8 700 Nilda PO Box weeks gestation of Mary Beth [place], 1522, Center [address], [facility], 120, [place] [id number], Zach [facility] 120, Zach ABDUL, tel:[phone] [place], , [place]. [id number]. tel: tel:[phone] Roxie Serrano Encounter for Jun- Lee Referring In Womens suprvsn of normal 3-201 Chela. Provider: Health WONG, , first 8 700 Nilda PO Box [email or web address] weeks Medical Shan [place], 1522, gestation of Center [facility] Tiera, , [facility], 120, [place] , [facility] 120, Zach ABDUL, tel:[phone] [place], , [place]. [id number]. tel: tel:[phone] Roxie Serrano Encounter for Dec-0 Lee Referring In Womens suprvsn of normal 5-201 Chela. Provider: Fabiano BACK, , first 7 700 Nilda PO Box trimesterLess than Mary Beth Millard, 1522, 8 weeks gestation Center [facility] Tiera, of , [facility], 120, [place] [id number], Zach [facility] 120, Zach ABDUL, tel:[phone] [place], , [place]. [id number]. tel: tel:[phone] Roxie Serrano Ot Nov-2 Torrez In Womens related conditions, - Nilda. Health WONG, unspecified 7 700 PO Box trimester Medical 1522, Center Dr Tiera, [facility] [place], 120, [id number], [place], [place], tel:[phone] , [place]. tel: [phone] Roxie Serrano Ot Apr-2 Torrez Referring In Womens related conditions, 7 Nilda. Provider: Fabiano BACK, unspecified 7 700 Nilda PO Box trimester Mary Beth [place], 1522, Center [facility] Dr Tiera, [facility], 120, Center [id number], Zach, [facility] 120, [place] Zach ABDUL, tel:[phone] [place], , [place]. [id number]. tel: tel:[phone] Roxie Serrano Otis-2 Torrez Referring In Womens Follow-Up, Routine 5-201 Nilda. Provider: Fabiano BACK, 7 700 Nilda Torrez [place], 1522, Center [address], [facility], 120, Center [id number], Zach, [facility] 120, [place] Zach ABDUL, tel:[phone] [place], , [place]. [id number]. tel: tel:[phone] Roxie Serrano Oct-0 Lee Referring In Womens 4-201 Chela. Provider: Fabiano BACK, 6 700 Nilda Torrez [place], 1522, Center [address] Dr [address], [facility], 120, Center [id number], [facility] 120, [place] Zach ABDUL, tel:[phone] [place], , [place]. [id number]. tel: tel:[phone] Roxie Serrano Sep-2 Lee Referring In Womens 0-201 Chela. Provider: Fabiano BACK, 6 700 Nilda Torrez [place], 1522, Center [address] Dr [address], [facility], 120, Center [id number], [facility] 120, [place] Zach ABDUL, tel:[phone] [place], , [place]. [id number]. tel: tel:[phone] Roxie Serrano Encounter for Apr-2 Lee Referring In Womens screening for oth 8-201 Chela. Provider: Fabiano BACK, infec/parastc 6 700 Nilda Lou [facility] Mary Beth Torrez [place], 1522, Center [address], [facility], 120, Center [id number], Zach, [facility] 120, [place] Zach ABDUL, tel:[phone] [place], [phone] , [place]. [id number]. tel: tel:[phone] Associates Zach False positive Apr-1 Lee Referring In Womens serology for HIV 2-201 Chela. Provider: Fabiano BACK, 6 700 Nilda [place], 1522, Center [address] Dr [address], [facility] [place], 120, Center , Zach, [facility] 120, [place] Zach ABDUL, tel:[phone] [place], , [place]. [id number]. tel: tel:[phone] Associates Zach Apr-0 Lee Referring In Womens 1-201 Chela. Provider: Fabiano BACK, 6 700 Nilda Torrez [place], 1522, Center [address], [facility], 120, [place] [id number], [facility] 120, [place] Zach ABDUL, tel:[phone] [place], , [place]. [id number]. tel: tel:[phone] Associates Zach Pelvic and perineal Mar-0 Torrez Referring In Womens pain 9-201 Nilda. Provider: Fabiano BACK, 6 700 Nilda [place], 1522, Center [address] Dr [address], [facility] [place], 120, Center [id number], [facility] 120, [place] Zach ABDUL, tel:[phone] [place], , [place]. [id number]. tel: tel:[phone] Associates Zach Pelvic and perineal Mar-0 Torrez Referring In Womens pain 7-201 Nilda. Provider: Fabiano BACK, 6 700 Nilda Torrez [place], 1522, Center [address] Dr [address], [facility], 120, Center [id number], [facility] 120, [place] Zach ABDUL, tel:[phone] [place], , [place]. [id number]. tel: tel:[phone] Roxie Serrano Irregular Oct-1 Torrez Referring In Womens MensesFemale 4-201 Nilda. Provider: Fabiano BACK, infertility 5 700 Nilda PO Box associated with Medical Shan [place], 1522, anovulationEncounte Center 700 elina Mott for , [facility] [place], test, result 120, Center [id number], negative Zach, [facility] 120, [place] Zach ABDUL, tel:[phone] [place], , [place]. [id number]. tel: tel:[phone] Roxie Serrano Sep- Shan Referring In Womens 6-201 Nilda. Provider: Fabiano BACK, 4 700 Nilda PO Box Medical Shan [place], 1522, Center [address] Dr [address], Tahir ABDUL, 120, Center [id number], Zach [facility] 120, [place] Zach ABDUL, tel:[phone] [place], , [place]. [id number]. tel: tel:[phone] Family History Family Member Diagnosis Age At [...] party ID Authorization(s) [employer] Out Of State [id number] [facility] [id number] [employer] Out Of State [id number] [employer] [facility] [id number] [facility] [id number] Social History Type Description Quantity Date Captured Alcohol Use Details No Caffeine Use Details Unknown Tobacco Use Status Unknown Smoking Status Never smoker Vital Signs Date / Height Weight BMI Pulse Blood Temperature Respiratory Body Head BMI Time: Rate Pressure Rate Surface Circumference percentile Area 201.10 37.9 109/63 -2018 lbs 9 mm[Hg] 1:44 kg/m PM eter (2) 38.0 -2018 3 1:38 kg/m PM eter (2) Chief Complaint And Reason For Visit Unknown Chief Complaint And Reason For Visit Reason For Referral Reason For Referral Unknown Plan Of Care Date Type Action Status Goal Lifestyle education regarding diet completed Goal Lifestyle education regarding diet completed Appointment Liberty Roman BOOKED Appointment Liberty Roman BOOKED Future Order: Lab Order Pap Smear With HPV Reflex If ASCUS Ordered ([id number]), Collected on: Date Type Problem Goal Intervention Status Start [...]
--- OUTSIDE RECORDS SUMMARY | 2018-01-18 23:49 | External Medical Summary | Continuity of Care Document ---
:1990 Author Organization [facility] Address [address] [place], [place] [id number] Phone Support Name Relationship Address Phone Kale Roman spouse [address] [phone] [place] [address] Allergies, Adverse Reactions, Alerts Substance Reaction Severity [...] second trimester 18 weeks gestation of - Irregular Menses Female [...] For Visit Members Roxie Serrano Placenta previa Jul- Lee Referring In Womens specified as w/o 8- Chela. Provider: Fabiano BACK hemor, second 8 700 Nilda [address] [id number] weeks Medical Shan Millard, 1522, gestation of Center [address] [place] [address], Tahir Santamaria [place], 120, [place] [id number], Zach [facility] 120, [place] Zach ABDUL, tel:[phone] [place], , [place]. [id number]. tel: tel:[phone] Roxie Serrano Encounter For Jul- Lee Referring In Womens Ultrasound 8- Chela. Provider: Fabiano BACK, Screening For 8 700 Nilda [address] [id number] Medical Shan Millard, 1522, weeks gestation Center [address] [place], [place] [address]ta, of Tahir Santamaria [place], 120, [place] [id number], Zach [facility] 120, [place] Zach ABDUL, tel:[phone] [place], , [place]. [id number]. tel: tel:[phone] Roxie Serrano Oth Jul-0 Lee Referring In Womens related 6-201 Chela. Provider: Fabiano BACK, conditions, 8 700 Nilda PO Box second Medical Shan Millard, 1522, [id number] weeks Center [address] [place] [address], gestation of Tahir Santamaria, 120, [place] [id number], Zach [facility] 120, [place] Zach ABDUL, tel:[phone] [place], , [place]. [id number]. tel: tel:[phone] Roxie Serrano Encounter for Lee Referring In Womens suprvsn of normal 3-201 Chela. Provider: Fabiano BACK, , first 8 700 Nilda [address] [id number] weeks Medical Shan Millard, 1522, gestation of Center [address] [place] [address], Tahir Santamaria, 120, [place] [id number], Zach [facility] 120, [place] Zach ABDUL tel:[phone] [place], , [place]. [id number]. tel: tel:[phone] Roxie Serrano Encounter for Dec-0 Lee Referring In Womens suprvsn of normal 5-201 Chela. Provider: Health PA, , first 7 700 Nilda PO Box trimesterLess Medical Shan J, 1522, than 8 weeks Center Jimmie Mott, gestation of , [facility], 120, Center [id number], [facility] 120, [place] Zach ABDUL, tel:[phone] [place], , [place]. [id number]. tel: tel:[phone] Roxie Serrano Oth Nov-2 Torrez In Womens related 7-201 Nilda. Health PA, conditions, 7 700 PO Box unspecified Medical 1522, trimester Center Dr Tiera, [facility], 120, [id number], Serrano, [facility], tel:[phone] , [place]. tel: [phone] Roxie Serrano Oth Nov-2 Torrez Referring In Womens related 7-201 Nilda. Provider: Health PA, conditions, 7 700 Nilda PO Box unspecified Medical Shan Millard, 1522, trimester Center [facility] Dr Tiera, [facility], 120, Center [id number], [facility], [place] Zach ABDUL, tel:[phone] [place], , [place]. [id number]. tel: tel:[phone] Roxie Serrano Otis-2 Torrez Referring In Womens Follow-Up, 5-201 Nilda. Provider: Health PA, Routine 7 700 Nilda PO Box Medical Shan Millard, 1522, Center [address], [facility], 120, Center [id number], [facility] 120, [place] Zach ABDUL, tel:[phone] [place], , [place]. [id number]. tel: tel:[phone] Roxie Serrano Oct-0 Lee Referring In Womens 4-201 Chela. Provider: Fabiano BACK, 6 700 Nilda [facility] J, 1522, Center [address] Tiera, [facility] [place], 120, Center [id number], Zach, [facility] 120, [place] Zach ABDUL, tel:[phone] [place], , [place]. [id number]. tel: tel:[phone] Roxie Serrano Sep-2 Lee Referring In Womens 0-201 Chela. Provider: Fabiano BACK, 6 700 Nilda Carm[facility] J, 1522, Center [address] Tiera, [facility], 120, Center [id number], Zach, [facility] 120, [place] Zach ABDUL, tel:[phone] [place], , [place]. [id number]. tel: tel:[phone] Roxie Serrano Encounter for Apr-2 Lee Referring In Womens screening for oth 8-201 Chela. Provider: Fabiano BACK, infec/parastc 6 700 Nilda [facility] J, 1522, Center [address] Tiera, [facility], 120, Center [id number], [facility] 120, [place] Zach ABDUL, tel:[phone] [place], , [place]. [id number]. tel: tel:[phone] Roxie Serrano False positive Apr-1 Lee Referring In Womens serology for HIV 2-201 Chela. Provider: Fabiano BACK, 6 700 Nilda Carmine [facility] J, 1522, Center [address] Dr Tiera, [facility], 120, Center [id number], Zach, [facility] 120, [place] Zach ABDUL, tel:[phone] [place], , [place]. [id number]. tel: tel:[phone] Roxie Serrano Apr-0 Lee Referring In Womens 1-201 Chela. Provider: Fabiano BACK, 6 700 Nilda [facility] [place], 1522, Center [address] Tiera, [facility] [place], 120, Center , Zach, [facility] 120, [place] Zach ABDUL, tel:[phone] [place], , [place]. [id number]. tel: tel:[phone] Associates Zach Pelvic and Mar-0 Torrez Referring In Womens perineal pain 9- Nilda. Provider: Health WONG, 6 700 Nilda PO Box Medical Shan Millard, 1522, Center [address] Tiera, [facility] [place], 120, Center [id number], Zach, Tahir 120, [place] Zach ABDUL, tel:[phone] [place], , [place]. [id number]. tel: tel:[phone] Associates Zach Pelvic and Mar-0 Torrez Referring In Womens perineal pain 7- Nilda. Provider: Health WONG, 6 700 Nilda PO Box Medical Shan Millard, 1522, Center [facility] Dr Tiera, [facility] [place], 120, Center [id number], Zach, [facility] 120, [place] Zach ABDUL, tel:[phone] [place], , [place]. [id number]. tel: tel:[phone] Associates Zach Irregular Oct- Torrez Referring In Womens MensesFemale 4- Nilda. Provider: Health WONG, infertility 5 700 Nilda PO Box associated with Medical Torrez J, 1522, anovulationEncoun Center [facility] [place] for , [facility] CHANTELL, test, result 120, Center [id number], negative Serrano, [facility] 120, [place] Zach ABDUL, tel:[phone] [place], , [place]. [id number]. tel: tel:[phone] Associates Zach Sep-1 Torrez Referring In Womens 6- Nilda. Provider: Health WONG, 4 700 Nilda PO Box Medical Torrez J, 1522, Center [address] Dr Tiera, [facility] [place], 120, Center [id number], Zach, [facility] 120, [place] Zach ABDUL, tel:[phone] [place], , [place]. [id number]. tel: tel: [phone] Family History Family Member Diagnosis Age At [...] party ID Authorization(s) BCBS Out Of State [id number] [facility] [id number] BCBS Out Of State [id number] BCBS [facility] [id number] BCBS [facility] [id number] Social History Type Description Quantity Date Captured Alcohol Use Details No Caffeine Use Details Unknown Tobacco Use Status Unknown Smoking Status Never smoker Vital Signs Date / Height Weight BMI Pulse Blood Temperature Respiratory Body Head BMI Time: Rate Pressure Rate Surface Circumference percentile Area 201.00 37.9 118/50 -2018 lbs 7 mm[Hg] 4:14 kg/m PM eter (2) Chief Complaint And Reason For Visit Unknown Chief Complaint And Reason For Visit Reason For Referral Reason For Referral Unknown Plan Of Care Date Type Action Status Goal Lifestyle education regarding completed diet Goal Lifestyle education regarding completed diet Future Order: Radiology Order Complete OB Ultrasound > 14 Weeks Ordered ([id number]) Date Type Problem Goal Intervention Status Start [...]
--- OUTSIDE RECORDS SUMMARY | 2018-01-18 23:49 | External Medical Summary | Continuity of Care Document ---
:1988 Author Organization [facility] Address [address] [place], [place] [id number] Phone Support Name Relationship Address Phone Kale Roman spouse [phone] [place] [address] Allergies, Adverse Reactions, Alerts Substance Reaction Severity [...] Roxie Serrano Encounter for Lee Referring In [facility] suprvsn of normal 3-201 Chela. Provider: Fabiano BACK, , first 8 700 Nilda PO Box [id number] weeks Medical Shan Millard, 1522, gestation of Center [address] [place] [address], , [facility], 120, Center [id number], Zach, [place] 120, [place] Zach ABDUL, tel:[phone] [place], , [place]. [id number]. tel: tel: [phone] Roxie Serrano Otis-0 Kelvin Referring In Womens 4-201 Jeffrey. 700 Provider: Fabiano BACK, 8 Medical Nilda PO Box Center Shan Millard, 1522, , [address], 120, Medical CHANTELL, Zach, [place] [id number], [place], [place] 120, [place] [id number] Zach, tel: , [place]. [place], tel: [phone] [id number] tel:[phone] Roxie Serrano Encounter for Dec-0 Lee Referring In Womens suprvsn of normal 5-201 Chela. Provider: Health WONG, , first 7 700 Nilda PO Box trimesterLess than Medical Shan Millard, 1522, 8 weeks gestation Center [address] [place] [address], of , [facility], 120, [place] [id number], Zach, [place] , Zach ABDUL, tel:[phone] [place], , [place]. [id number]. tel: tel: [phone] Roxie Serrano Oth Nov-2 Torrez In Womens related conditions, 7201 Nilda. Health WONG, unspecified 7 700 PO Box trimester Medical 1522, Center Dr Tiera, [facility], 120, [id number], Serrano, CHANTELL, tel: [phone] , [place]. tel: [phone] Roxie Serrano Oth Nov-2 Torrez Referring In Womens related conditions, 7 Nilda. Provider: Health WONG, unspecified 7 700 Nilda PO Box trimester Medical Shan Millard, 1522, Center [facility] Dr Tiera, [place] [facility] [place], 120, Center [id number], Zach, [place] 120, [place] Zach ABDUL, tel:[phone] [place], , [place]. [id number]. tel: tel:[phone] Roxie Serrano Otis-2 Torrez Referring In Womens Follow-Up, Routine 5-201 Nilda. Provider: Fabiano BACK, 7 700 Nilda Torrez [place], 1522, Center [address], [facility] [place], 120, Center [id number], Zach, [place] 120, [place] Zach ABDUL, tel:[phone] [place], , [place]. [id number]. tel: tel:[phone] Roxie Serrano Oct-0 Lee Referring In Womens 4-201 Chela. Provider: Fabiano BACK, 6 700 Nilda Torrez [place], 1522, Center [address], [facility], 120, Center [id number], Zach, [place] 120, [place] Zach ABDUL, tel:[phone] [place], , [place]. [id number]. tel: tel:[phone] Roxie Serrano Sep-2 Lee Referring In Womens 0-201 Chela. Provider: Fabiano BACK, 6 700 Nilda [place], 1522, Center [address], [facility], 120, Center [id number], Zach [place] 120, [place] Zach ABDUL, tel:[phone] [place], , [place]. [id number]. tel: tel:[phone] Serrano Encounter for Apr-2 Lee Referring In Womens screening for oth 8-201 Chela. Provider: Fabiano BACK, infec/parastc 6 700 Nilda Torrez [place], 1522, Center [address], [facility], 120, Center [id number], Zach [place] 120, [place] Zach ABDUL, tel:[phone] [place], , [place]. [id number]. tel: tel:[phone] Roxie Serrano False positive Apr-1 Lee Referring In Womens serology for HIV 2-201 Chela. Provider: Fabiano BACK, 6 700 Nilda PO Box Medical Torrez J, 1522, Center [address], [facility] [place], 120, Center [id number], Zach, [place] 120, [place] Zach, tel:[phone] [place], , [place]. [id number]. tel: tel:[phone] Associates Zach Apr-0 Lee Referring In Womens 1-201 Chela. Provider: Fabiano BACK, 6 700 Nilda PO Box Medical Shan Millard, 1522, Center [address], [facility] [place], 120, Center [id number], Zach, [place] 120, [place], tel:[phone] [place], , [place]. [id number]. tel: tel:[phone] Associates Zach Pelvic and perineal Mar-0 Torrez Referring In Womens pain 9-201 Nilda. Provider: Fabiano BACK, 6 700 Nilda PO Box Medical Torrez [place], 1522, Center [address], [facility], 120, Center [id number], Zach, [place] 120, [place] CHANTELL Zach, tel:[phone] [place], , [place]. [id number]. tel: tel:[phone] Associates Zach Pelvic and perineal Mar-0 Torrez Referring In Womens pain 7-201 Nilda. Provider: Fabiano BACK, 6 700 Nilda PO Box Medical Torrez J, 1522, Center [facility] Dr Tiera, [facility] [place], 120, Center [id number], Zach, [place] 120, [place] Zach ABDUL, tel:[phone] [place], , [place]. [id number]. tel: tel:[phone] Associates Zach Irregular Mar- Shan Referring In Womens MensesFemale 4-201 Nilda. Provider: Fabiano BACK, infertility 5 700 Nilda PO Box associated with Medical Torrez J, 1522, anovulationEncounte Center [facility] elina Mott for , [facility], test, result 120, Center [id number], shiva Serrano, [place] 120, CHANTELL Zach, tel: [phone] [place], , . [id number]. tel: [phone] Roxie Serrano Shan Referring In Womens 6-201 Nilda. Provider: [facility], 700 [facility] Shan , 1522, Center [address]iera, [facility], 120, [place] [id number], [place] 120, CHANTELL Zach, tel: [phone] [place], , [place]. [id number]. tel: tel:[phone] Family History Family Member Diagnosis Age At [...] Record Payers Payer name Insurance type Covered democrat ID Authorization(s) [facility] [id number] [facility] Out Of State [id number] [facility] Out Of State [id number] [facility] [id number] [facility] [id number] Social History Type Description Quantity Date Captured [...]
--- OUTSIDE RECORDS SUMMARY | 2018-01-18 23:49 | External Medical Summary | Continuity of Care Document ---
:1988 Author Organization [facility] Address [address] [place], [place] [phone] Phone Support Name Relationship Address Phone Kale Roman spouse [address] [phone] [place] [address] Allergies, Adverse Reactions, Alerts Substance Reaction Severity [...] first trimester 13 weeks gestation of - Irregular Menses Female [...] Mastodynia - Active Active Procedures Procedure Date Immuniz admnin, 1 vac, sngl/combo 19 Yrs + Flu Vaccine - Quadrivalent No Charge Sonogram OB Visit No Charge OB Panel With An HIV Venpnctr fngr/heel/ear stick routne Cult, bactr, david colonycnt, urine Cult, bactr, ident isolate, urine Results Test Name Date and Time Measure Units Reference Range Abnormal Flag Comments Panel Description: OBSTETRIC PANEL WHITE BLOOD CELL 8.3 Thousand/uL 3.8-10.8 N COUNT 14:25:00 RED BLOOD CELL 4.50 Million/uL 3.80-5.10 N COUNT 14:25:00 HEMOGLOBIN 12.1 g/dL 11.7-15.5 N 14:25:00 HEMATOCRIT 36.5 % 35.0-45.0 N 14:25:00 MCV 81.1 fL 80.0-100.0 N 14:25:00 MCH 26.9 pg 27.0-33.0 L 14:25:00 MCHC 33.2 g/dL 32.0-36.0 N 14:25:00 RDW 13.9 % 11.0-15.0 N 14:25:00 PLATELET COUNT 292 Thousand/uL 140-400 N 14:25:00 MPV 12.2 fL 7.5-12.5 N 14:25:00 ABSOLUTE 5769 cells/uL 0032-8981 N NEUTROPHILS 14:25:00 ABSOLUTE 1643 cells/uL 850-3900 N LYMPHOCYTES 14:25:00 ABSOLUTE 614 cells/uL 200-950 N MONOCYTES 14:25:00 ABSOLUTE 257 cells/uL 15-500 N EOSINOPHILS 14:25:00 ABSOLUTE 17 cells/uL 0-200 N BASOPHILS 14:25:00 NEUTROPHILS 69.5 % N 14:25:00 LYMPHOCYTES 19.8 % N 14:25:00 MONOCYTES 7.4 % N 14:25:00 EOSINOPHILS 3.1 % N 14:25:00 BASOPHILS 0.2 % N 14:25:00 ANTIBODY SCREEN, NO ANTIBODIES N RBC W/REFL ID, 14:25:00 DETECTED Reference range TITER AND AG No antibodies detected This assay is a screening test for the detection of red blood cell antibodies. The test is not to be used for pretransfusion screening or for the medical management of an alloimmunized . ABO GROUP O 14:25:00 RH TYPE RH(D) 14:25:00 POSITIVE RPR (DX) W/REFL NON-REACTIVE NON-REACTIV N TITER AND 14:25:00 E CONFIRMATORY TESTING HEPATITIS B NON-REACTIVE NON-REACTIV N SURFACE ANTIGEN 14:25:00 E RUBELLA ANTIBODY 5.01 index N Index (IGG) 14:25:00 Interpretation ----- <0.90 Not consistent with Immunity 0.90-0.99 Equivocal > or=1.00 Consistent with Immunity The presence of rubella IgG antibody suggests immunization or past or current infection withrubella virus.Test [place] [address]Gemzufm r: GUIDO SCOTT DO,MPH Panel Description: HIV 1/2 ANTIGEN/ANTIBODY,FOURTH GENERATION W/RFL HIV NON-REACTIVE NON-REACTIVE N HIV-1 antigen and HIV-1/HIV- 2 antibodies were AG/AB, 14:25:00 notdetected. There is no laboratory evidence of 4TH GEN HIVinfection. PLEASE NOTE: This information has been disclosed toyou from records whose confidentiality may beprotected by state law. If your state requires suchprotection, then the state law prohibits you frommaking any further disclosure of the informationwithout the specific written consent of the personto whom it pertains, or as otherwise permitted by law.A general authorization for the release of medical orother information is NOT sufficient for this purpose. For additional information please refer tohttp://education.AllClear ID/faq/[email or web address](This link is being provided for informational/educational purposes only.) The performance of this assay has not been clinicallyvalidated in patients less than 2 years old. REPORT COMMENT:FASTING:NOTest [place] [address]Ruqaeooe: GUIDO SCOTT DO,MPH Panel Description: Bacteria identified in Urine by Culture CULTURE, URINE, 14:28:00 SEE NOTE CULTURE, URINE, ROUTINE ROUTINE MICRO NUMBER: [id number] TEST STATUS: FINAL SPECIMEN SOURCE: URINE SPECIMEN QUALITY: ADEQUATE RESULT: Single organism less than 10,000 CFU/mL isolated. These organisms, commonly found on external and internal genitalia, are considered colonizers. No further testing performed.REPORT COMMENT:RFASTING:UNKNOWNTest performed at [facility] [id number] [place] [address]Osceollt: GUIDO SCOTT DO,MPH Advance Directives Directive Yes / No Effective Date File Name Unknown Encounters Encounter Practice Location Reason(s) Diagnoses Date Provider Care Team Description For Visit Members Roxie Serrano Ot Jul- Lee Referring In Womens related conditions, 6-201 Chela. Provider: Fabiano BACK, second [id number] 8 700 Nilda PO Box weeks gestation of Mary Beth Millard, 1522, Center [facility] Dr Tiera, [facility], 120, [place] [id number], [facility] 120, Zach ABDUL, tel:[phone] [facility] [id number] , . [id number]. tel: tel:[phone] Roxie Serrano Encounter for Lee Referring In Womens suprvsn of normal 3-201 Chela. Provider: Fabiano BACK, , first 8 700 Nilda CASTILLO Carmine [id number] weeks Mary Beth Millard, 1522, gestation of Center [facility] Tiera, Dr [facility], 120, [place] [id number], [facility] 120, [place] Zach ABDUL, tel:[phone] [facility] [id number] , . [id number]. tel: tel:[phone] Roxie Serrano Encounter for Lee Referring In Womens suprvsn of normal 5-201 Chela. Provider: Fabiano BACK, , first 7 700 Nilda PO Box trimesterLess than Mary Beth Millard, 1522, 8 weeks gestation Center [facility] Tiera, [facility] Dr [facility], 120, Center [id number], Zach, [facility] 120, [place] Zach ABDUL, tel:[phone] [place], , [place]. [id number]. tel: tel:[phone] Roxie Serrano Oth Nov-2 Torrez In Womens related conditions, 7-201 Nilda. Health PA, unspecified 7 700 PO Box trimester Medical 1522, Center Dr Tiera, [facility] [place], 120, [id number], [place], [place], tel:[phone] , [place]. tel: [phone] Roxie Serrano Oth Nov-2 Torrez Referring In Womens related conditions, Nilda. Provider: Health WONG, unspecified 7 700 Nilda PO Box trimester Medical Torrez J, 1522, Center [address] Dr Tiera, [facility], 120, [place] [id number], [facility] 120, Zach ABDUL, tel:[phone] [place], , [place]. [id number]. tel: tel:[phone] Roxie Serrano Otis-2 Torrez Referring In Womens Follow-Up, Routine 5-201 Nilda. Provider: Fabiano BACK, 7 700 Nilda PO Box Medical Torrez J, 1522, Center [address], [facility], 120, [place] [id number], [facility] 120, Zach ABDUL, tel:[phone] [place], , [place]. [id number]. tel: tel:[phone] Roxie Serrano Oct-0 Lee Referring In Womens 4-201 Chela. Provider: Health WONG, 6 700 Nilda PO Box Medical Torrez J, 1522, Center [address] Dr [address]iera, [facility], 120, Center [id number], [facility] 120, [place] Zach ABDUL, tel:[phone] [place], , [place]. [id number]. tel: tel:[phone] Roxie Serrano Sep-2 Lee Referring In Womens 0-201 Chela. Provider: Fabiano BACK, 6 700 Nilda Torrez J, 1522, Center [address] Tiera, [facility] [place], 120, Center [id number], Zach, [facility] 120, [place] Zach ABDUL, tel:[phone] [place], , [place]. [id number]. tel: tel:[phone] Roxie Serrano Encounter for Apr-2 Lee Referring In Womens screening for oth 8-201 Chela. Provider: Fabiano BACK, infec/parastc 6 700 Nilda Torrez J, 1522, Center [address], [facility] [place], 120, Center [id number], Zach, [facility] 120, [place] Zach ABDUL, tel:[phone] [place], , [place]. [id number]. tel: tel:[phone] Roxie Serrano False positive Apr-1 Lee Referring In Womens serology for HIV 2-201 Chela. Provider: Fabiano BACK, 6 700 Nilda Torrez J, 1522, Center [address] Dr Tiera, [facility] [place], 120, Center [id number], Zach [facility] 120, [place] Zach ABDUL, tel:[phone] [place], , [place]. [id number]. tel: tel:[phone] Roxie Serrano Apr-0 Lee Referring In Womens 1-201 Chela. Provider: Fabiano BACK, 6 700 Nilda Torrez J, 1522, Center [address] Dr [address], [facility] [place], 120, Center [id number], Zach [facility] 120, [place] Zach ABDUL, tel:[phone] [place], , [place]. [id number]. tel: tel:[phone] Roxie Serrano Pelvic and perineal Mar-0 Shan Referring In Womens pain 9-201 Nilda. Provider: Fabiano BACK, 6 700 Nilda Torrez [place], 1522, Center [address], [facility] [place], 120, Center [id number], Zach [facility] 120, [place] Zach ABDUL, tel:[phone] [place], , [place]. [id number]. tel: tel:[phone] Associates Zach Pelvic and perineal Mar-0 Shan Referring In Womens pain 7-201 Nilda. Provider: Health WONG, 6 700 Nilda PO Box Medical Shan J, 1522, Center [address] Dr Tiera, [facility], 120, Center [id number], Zach, [facility] 120, Zach ABDUL, tel:[phone] [place], , [place]. [id number]. tel: tel:[phone] Associates Zach Irregular Oct- Shan Referring In Womens MensesFemale 4-201 Nilda. Provider: Health WONG, infertility 5 700 Nilda PO Box associated with Medical Shan Millard, 1522, anovulationEncounte Center 700 elina Mott for , [facility] CHANTELL, test, result 120, Center [id number], negative Serrano, [facility] 120, Zach ABDUL, tel:[phone] [place], , [place]. [id number]. tel: tel:[phone] Associates Zach Sep-1 Shan Referring In Womens 6-201 Nilda. Provider: Health WONG, 4 700 Nilda PO Box Medical Shan J, 1522, Center [address] Dr Tiera, [facility], 120, Center [id number], Zach, [facility] 120, [place] Zach ABDUL, tel:[phone] [place], , [place]. [id number]. tel: tel:[phone] Family History Family Member Diagnosis Age At [...] name Insurance type Covered libertarian ID Authorization(s) [employer] Out Of State [id number] [facility] [id number] [employer] Out Of State [id number] BCBS [facility] [id number] BCBS [facility] [id number] Social History Type Description Quantity Date Captured Alcohol Use Details No Caffeine Use Details No Tobacco Use Status Never smoked tobacco Smoking Status Never smoker Vital Signs Date / Height Weight BMI Pulse Blood Temperature Respiratory Body Head BMI Time: Rate Pressure Rate Surface Circumference percentile Area 201.30 38.0 110/64 2018 lbs 3 mm[Hg] 1:40 kg/m PM eter (2) Chief Complaint And [...]
[~2018-01-19 02:16] MED LIST: ACETAMINOPHEN 500 MG TABLET PO PRN; BUTORPHANOL 2 MG/ML INJECTION IVP PRN; CALCIUM CARBONATE Chewable 500mg TABLET PO PRN; CARBOPROST 250 MCG/ML INJECTION IM PRN; D5LR 1,000 ML IV SCH; LR 1,000 ML IV PRN; MAG-AL + SIM ORAL LIQUID 30ml PO PRN; METHYLERGONOVINE 0.2 MG/ML INJECTION IM PRN; SALINE FLUSH 10ml SYRINGE IV PRN; ZOLPIDEM 5 MG TABLET PO ONE
[2018-01-19] MEDS ORDERED: OXYTOCIN DRIP 30 UNIT/500 ML ML IV SCH ×2 (09:15→11:00)
[2018-01-19] MEDS ORDERED: HYDROCODONE/APAP 5mg/325mg TABLET PO PRN (10:49)
[2018-01-19] MEDS ORDERED: HYDROCORTISONE 2.5% CREAM 30gm RECTALLY PRN (10:49)
[2018-01-19] MEDS ORDERED: DiphenhydrAMINE 25 MG CAPSULE PO PRN (10:49)
[2018-01-19] MEDS: IBUPROFEN 800 MG TABLET PO PRN ×2 (11:18→18:37)
[2018-01-20] MEDS: IBUPROFEN 800 MG TABLET PO PRN ×2 (02:42→13:11)
[2018-01-20 02:44] VITALS: RESP 16
--- NOTE | 2018-01-20 08:21 | OB/GYN Progress Note ---
OB-PP Progress Note - General PPD1 Maternal Group B Strep: Negative Maternal Rh: positive Maternal Rubella Status: Immune - Subjective Date: 01/20/18 Lochia: Minimal Pain: controlled Voiding: voiding - Objective Vital Signs: Last Vital Signs Temp 98.0 F 01/20/18 02:40 Pulse 80 01/20/18 02:40 Resp 16 01/20/18 02:40 BP 132/66 01/20/18 02:40 Pulse Ox 98 01/20/18 02:40 General: alert and oriented Abdomen: fundus firm, non-tender Extremities: non-tender Edema: none - Assessment Assessment: - Plan Plan: routine care, discharge home, continue PNV
[2018-01-20] MEDS ORDERED: DOCUSATE CALCIUM 240 MG CAPSULE PO SCH (09:00)
--- NOTE | 2018-01-20 09:19 | Labor and Delivery Note ---
DATE OF DELIVERY 01/19/2018 Liberty is a 27-year-old 2, para 1 at 39 weeks 4 days gestational age who presented to Maternal/Child in spontaneous labor. When she was 9 cm, her membranes were ruptured artificially, returning clear fluids. Two hours later, she was still 9 cm, so she was started on Pitocin augmentation. She then progressed on to complete and only had to push with a couple of contractions. She had a spontaneous vaginal delivery of a viable male infant, Apgars 8/9, weight 3170 grams name "Severo". There was a tight nuchal cord. She pushed the rest of the body out before I was able to address the nuchal cord. The baby was vigorous at delivery so he was placed on mom's abdomen and the cord clamping was delayed for more than two minutes. The placenta delivered spontaneously. She had a second-degree laceration that was bleeding. This was injected with local and then repaired with 2-0 Vicryl. Mom and baby tolerated the delivery well. TULIOD
[2018-01-20 17:21] VITALS: BP 98/52; PULSE 73; TEMP 98.4; O2SAT 99
== END 2018-01-20 17:23 | disposition home or self-care (01) | DRG 775 ==
LOC: MC
PROVIDERS: ADMIT Obstetrics & Gynecology; ATTEND Obstetrics & Gynecology